=== PATIENT | female | born 1970 | race Two or more races ===

== ENCOUNTER → 2020-02-07 11:36 | Outpatient (BNVA) | payer OTHER, SELFPAY | PROVIDERS: PCP Physician Assistant; Visit Provider Internal Medicine Pulmonary Disease | DX: J42 Unspecified chronic bronchitis (principal); Z79.899 Other long term (current) drug therapy | CPT/HCPCS: 99212 ==

== ENCOUNTER → 2020-04-27 14:39 | Outpatient (BNVA) | payer OTHER, SELFPAY | PROVIDERS: PCP Physician Assistant; Visit Provider Internal Medicine Pulmonary Disease ==

== ENCOUNTER → 2020-06-25 10:32 | Outpatient (BNVA) | payer OTHER, SELFPAY | PROVIDERS: PCP Physician Assistant; Visit Provider Internal Medicine Pulmonary Disease ==

== ENCOUNTER → 2020-10-26 11:29 | Outpatient (BNVA) | payer OTHER, SELFPAY | PROVIDERS: PCP Physician Assistant; Visit Provider Internal Medicine Pulmonary Disease ==

== ENCOUNTER → 2021-05-03 13:29 | Outpatient (BNVA) | payer OTHER, SELFPAY | PROVIDERS: PCP Physician Assistant; Visit Provider Internal Medicine Pulmonary Disease | DX: J42 Unspecified chronic bronchitis (principal); J20.9 Acute bronchitis, unspecified; J01.90 Acute sinusitis, unspecified; Z79.899 Other long term (current) drug therapy | CPT/HCPCS: 99212 ==

== ENCOUNTER → 2021-08-21 10:37 | Outpatient (BNVA) | payer OTHER, SELFPAY | PROVIDERS: PCP Internal Medicine; Visit Provider Internal Medicine Pulmonary Disease | DX: J42 Unspecified chronic bronchitis (principal); J20.9 Acute bronchitis, unspecified; G47.33 Obstructive sleep apnea (adult) (pediatric); R06.00 Dyspnea, unspecified; Z99.89 Dependence on other enabling machines and devices | CPT/HCPCS: 99212 ==

== ENCOUNTER → 2021-10-04 13:37 | Outpatient (BNVA) | payer OTHER, SELFPAY | PROVIDERS: PCP Internal Medicine; Visit Provider Internal Medicine Pulmonary Disease | DX: J20.9 Acute bronchitis, unspecified (principal); J42 Unspecified chronic bronchitis; R06.00 Dyspnea, unspecified; G47.33 Obstructive sleep apnea (adult) (pediatric); Z99.89 Dependence on other enabling machines and devices | CPT/HCPCS: 99212 ==

== ENCOUNTER → 2021-11-26 13:00 | Outpatient (REF) | payer OTHER, SELFPAY ==
--- NOTE | ~2021-11-26 | XR_ITS ---
EXAMINATION: XR CHEST CLINICAL INFORMATION: Dyspnea COMPARISON: None TECHNIQUE: 2 views of the chest were obtained. FINDINGS: The lungs are well expanded. There is no focal consolidation, edema, or effusion. No pneumothorax. The cardiomediastinal silhouette is within normal limits. No acute osseous abnormality. XR/XR chest 2V IMPRESSION: Clear lungs.
--- NOTE | 2021-11-26 13:06 | CA_ITS ---
Transthoracic Echocardiogram Patient (Last, First, Middle): Rita Carlin, Gender: Female Date of : 1970 Age: 50 Procedure Date: 11/26/2021 Procedure Type: Transthoracic Echocardiogram Location: OP Height: 152.4 cm Weight: 89.36 kg BSA: 1.85 m2 Heart Rate: bpm BP: 122 / 60 mmHg Director Account Management: Referring MD: Chacho Saul MD Symptoms: R06.00 - Dyspnea, unspecified Study Quality: Fair ECG Rhythm: Sinus Conclusions: - The left ventricular systolic function is normal. The calculated ejection fraction is 62% by biplane method. - No obvious valvular pathology seen on this study. - There is no evidence of pulmonary hypertension. - There is no evidence of pericardial effusion. Findings Left Ventricle Normal left ventricular cavity size. There is mildly increased left ventricular wall thickness. The left ventricular systolic function is normal. The calculated ejection fraction is 62% by biplane method. There is no evidence of regional wall motion abnormalities. Diastolic function is normal for age. Right Ventricle Normal right ventricular cavity size and systolic function. Atria Both atria are normal in size. Aortic Valve The aortic valve was not well visualized. There is no aortic valve stenosis. There is no aortic valve regurgitation. Mitral Valve The mitral valve appears normal. There is no mitral valve regurgitation. There is no mitral valve stenosis. Pulmonic Valve The pulmonic valve was not well visualized. Tricuspid Valve There is trace tricuspid valve regurgitation. There is no evidence of pulmonary hypertension. Great Vessels The asc aorta is normal in size. Venous The inferior vena cava is normal in size and collapses greater than 50% with inspiration. Pericardium/Pleural There is no evidence of pericardial effusion. Prior Study Comparison No prior study available for comparison. Recommendations, Care & Conclusions No obvious valvular pathology seen on this study. Measurements 2D Linear Measurements IVSd: 1.34 0.6-0.9/0.6-1.0 cm LVIDd: 4.16 3.9-5.3/4.2-5.9 cm LVIDd Index: 2.25 2.4-3.2/2.2-3.1 cm/m2 LVIDs: 2.57 2.0-3.6 cm LVPWd: 1.37 0.7-1.1 cm Ao Root: 3.30 2.1-3.5 cm LA Diam: 3.70 2.7-3.8/3.0-4.0 cm LAIDs Index: 2.00 1.5-2.3 cm/m2 LV Mass: 262.34 67-162/88-224 g LV Mass Index: 141.81 43-95/49-115 g/m2 LVOT Diam: 2.10 3.0+(-)1.3 cm 2D Systolic Function EF 4C: 58.80 >55% EF 2C: 62.30 >55% EF BiP: 61.80 >55% Mitral Valve MV Pk E: 0.75 MV PK A: 0.98 MV Decel Time: 187.00 E/A: 0.80 E'Lateral: 8.59 E'Medial: 6.42 E/E' Med: 11.70 E/E' Lat: 8.80 PHT: 55.00 MVA PHT: 4.00 Decel Jasper: 4.04 Aortic Valve AoV Pk Dino: 1.39 AoV Mn Dino: 0.95 AoV VTI: 0.31 AoV Pk Grad: 8.00 Aov Mn Grad: 4.00 AUNDREA Cont.VTI: 2.57 LVOT LVOT Pk Dino: 1.16 LVOT Mn Dino: 0.69 LVOT VTI: 0.23 LVOT Pk Grad: 5.00 LVOT Mn Grad: 2.00 LVOT Diam: 2.10 LVOT Area: 3.46 Diastolic Function MV Pk E: 0.75 MV Pk A: 0.98 E/A: 0.80 E'Medial: 6.42 E/E' Med: 11.70 E' Laterial: 8.59 E/E' Lat: 8.80 Right Ventricle TAPSE (mm): 28.00 TVS' Dino: 12.00 Tricuspid Valve TR Pk Dino: 1.83 TR Pk Grad: 13.00 RA Press: 3.00 RVSP: 16.00 Great Vessels Aorta Ao Root-2D: 3.30 2.0-3.7 cm Ao Asc: 3.30 2.1-3.4 cm Pulmonary Valve PV Pk Dino: 1.00 Peak PV Grad: 4.00 Updated in Other Vendor System with Status of Final Quintin Coleman MD electronically signed on 11/27/2021 12:20:56 PM with status of Final
== END ==
LOC: HO.CARD 13:00
PROVIDERS: PCP Internal Medicine; Visit Provider Internal Medicine Pulmonary Disease
DX: R06.00 Dyspnea, unspecified (principal)
CPT/HCPCS: 71046; 93306

== ENCOUNTER → 2021-12-18 10:59 | Outpatient (BNVA) | payer OTHER, SELFPAY | PROVIDERS: PCP Internal Medicine; Visit Provider Internal Medicine Pulmonary Disease | DX: R06.00 Dyspnea, unspecified (principal); G47.33 Obstructive sleep apnea (adult) (pediatric); Z79.899 Other long term (current) drug therapy; Z99.89 Dependence on other enabling machines and devices | CPT/HCPCS: 99212 ==

== ENCOUNTER → 2022-01-28 11:13 | Outpatient (BNVA) | payer OTHER, SELFPAY | PROVIDERS: PCP Internal Medicine; Visit Provider Internal Medicine Pulmonary Disease | DX: J20.9 Acute bronchitis, unspecified (principal); J42 Unspecified chronic bronchitis; R06.00 Dyspnea, unspecified; G47.33 Obstructive sleep apnea (adult) (pediatric); Z99.89 Dependence on other enabling machines and devices | CPT/HCPCS: 99212 ==

== ENCOUNTER → 2022-02-13 10:34 | Outpatient (BNVA) | payer OTHER, SELFPAY | PROVIDERS: PCP Internal Medicine; Visit Provider Internal Medicine Pulmonary Disease | DX: J42 Unspecified chronic bronchitis (principal); G47.33 Obstructive sleep apnea (adult) (pediatric); R06.00 Dyspnea, unspecified; Z99.89 Dependence on other enabling machines and devices | CPT/HCPCS: 99212 ==

== ENCOUNTER → 2022-04-30 13:54 | Outpatient (REF) | payer OTHER, SELFPAY | LOC: HO.SL 13:54 | PROVIDERS: PCP Internal Medicine; Visit Provider Internal Medicine Pulmonary Disease | DX: G47.33 Obstructive sleep apnea (adult) (pediatric) (principal); Z99.89 Dependence on other enabling machines and devices | CPT/HCPCS: 95806 ==

== ENCOUNTER → 2022-07-04 09:15 | Outpatient (BNVA) | payer OTHER, SELFPAY | PROVIDERS: PCP Internal Medicine; Visit Provider Internal Medicine Pulmonary Disease | DX: R06.00 Dyspnea, unspecified (principal); J20.9 Acute bronchitis, unspecified; J42 Unspecified chronic bronchitis | CPT/HCPCS: 99212 ==

== ENCOUNTER → 2022-09-24 11:00 | Outpatient (BNVA) | payer OTHER, SELFPAY | PROVIDERS: PCP Internal Medicine; Visit Provider Internal Medicine Pulmonary Disease | DX: J42 Unspecified chronic bronchitis (principal); Z79.899 Other long term (current) drug therapy | CPT/HCPCS: 99212 ==

== ENCOUNTER 2023-01-21 11:04 | Outpatient (AMB) | payer MEDICARE, MEDICAID, SELFPAY ==
--- NOTE | 2023-01-21 11:05 | MHC.OFFVIS ---
Intake Vital Signs 01/21/23 11:06 Height 5 ft Weight 213 lb 13.574 oz BMI 41.8 BP 108/67 Blood Pressure Location Lt brachial Position Sitting Pulse 80 Pulse Source Doppler Pulse Oximetry (%) 98 Oxygen Delivery Method Room Air Intake Visit Reasons: asthma Loss Prevention Coordinator Required: Yes Loss Prevention Coordinator Name: Seema Aden Franks Allergies penicillin V Allergy (Severe, Verified 01/21/23 11:10) Dizziness/Closed Trachea Sulfa (Sulfonamide Antibiotics) Allergy (Severe, Verified 01/21/23 11:10) Dizziness/Closed Trachea HPI asthma HPI Details 52-year-old lady, lifetime nonsmoker, with underlying super morbid obesity followed for CONSTANTINO, dyspnea on exertion, and chronic bronchitis. ?She continues to use Breo, Spiriva, Brovana, and albuterol MDI with suboptimal control of her symptoms.? She has completed her 2D echocardiogram and was normal.? She continues to complain of dyspnea with exertion and fatigue.? [facility] Social History Patient Tobacco Use Status: Never used Tobacco Review of Systems Const Denies daytime sleepiness, Denies excessive sweating, Denies fatigue, Denies fever(s), Denies lethargy, Denies malaise, Denies night sweats, Denies snoring and Denies weight loss Eyes Denies blurry vision and Denies itchy eyes ENT Denies nasal congestion, Denies post nasal drip, Denies sinus pain, Denies sinus pressure and Denies other ( Thrush) Card Denies chest pain, Denies pedal edema, Denies dyspnea, Reports dyspnea on exertion, Denies orthopnea and Denies paroxysmal nocturnal dyspnea Resp Denies cough, Denies hemoptysis, Denies excessive phlegm production, Denies dyspnea, Reports dyspnea on exertion, Denies snoring, Denies wheezing and Reports other (Chest tightness) GI Denies abdominal pain and Denies heartburn Musc Denies myalgias, Denies arthralgias and Denies joint swelling Skin/Breast Denies rash Neuro Denies memory loss and Denies seizure-like activity Psych Denies abnormal sleep pattern, Denies anxiety and Denies memory loss Endo Denies excessive sweating, Denies fatigue and Denies heat intolerance Hal/Lymph Denies easy bruising Aller/Immun Denies itchy eyes, Denies seasonal rhinorrhea and Denies wheezing Physical Exam Vital Signs: Last Vital Signs Pulse 80 01/21/23 11:06 BP 108/67 01/21/23 11:06 Pulse Ox 98 01/21/23 11:06 Oxygen Delivery Method Room Air 01/21/23 11:06 BMI result Body Mass Index 41.8 Const General: no acute distress and alert Nutritional Appearance: obese Orientation/consciousness: Other orientation findings ( oriented) HEENT Head: Yes atraumatic Eyes General: appearance normal, both eyes and all related structures Sclerae: sclerae normal EOM: EOMs intact bilaterally Neck Neck: Yes supple Lymphatic: no lymphadenopathy noted Resp Effort & Inspection: normal respiratory effort and no use of accessory muscles Auscultation: clear to auscultation bilaterally Cardio Rate: regular rate Rhythm: regular rhythm Heart sounds: no gallops, no murmurs and no rubs Skin General skin exam: other ( warm) Extrem General: No clubbing, No cyanosis and No edema Assessment & Plan Assessment & Plan (1) Dyspnea on exertion: Code(s): R06.00 - Dyspnea, unspecified Plan: Pulmonary component controlled on essentially maximum therapy with Brovana, duo nebs, Breo, albuterol MDI. Patient has been advised to discuss weight management options with weight management program. (2) CONSTANTINO on CPAP: Code(s): G47.33 - Obstructive sleep apnea (adult) (pediatric); Z99.89 - Dependence on other enabling machines and devices Plan: Reasonably well controlled on current therapy. Continue current CPAP therapy. Coding Level of Care Code Est Pt Level 4 (19273) Diagnoses Dyspnea on exertion R06.00 CONSTANTINO on CPAP G47.33; Z99.89
[2023-01-21 11:06] VITALS: BP 108/67; PULSE 80; O2SAT 98; BMI 41.8
== END 2023-01-21 11:26 | disposition home or self-care (01) ==
PROVIDERS: PCP Internal Medicine; Visit Provider Internal Medicine Pulmonary Disease
DX: R06.00 Dyspnea, unspecified (principal); G47.33 Obstructive sleep apnea (adult) (pediatric); Z99.89 Dependence on other enabling machines and devices
CPT/HCPCS: 99214

== ENCOUNTER → 2023-01-21 11:04 | Outpatient (BNVA) | payer MEDICARE, MEDICAID, SELFPAY | PROVIDERS: PCP Internal Medicine; Visit Provider Internal Medicine Pulmonary Disease | DX: R06.00 Dyspnea, unspecified (principal); G47.33 Obstructive sleep apnea (adult) (pediatric); Z99.89 Dependence on other enabling machines and devices | CPT/HCPCS: 99212 ==

== ENCOUNTER 2023-06-18 10:55 | Outpatient (AMB) | payer MEDICARE, MEDICAID, SELFPAY ==
[2023-06-18 11:14] VITALS: BP 98/62; PULSE 74; O2SAT 98; BMI 41.5
--- NOTE | 2023-06-18 11:14 | A.OFFVIS_ITS ---
Intake Vital Signs 06/18/23 11:14 Height 5 ft Weight 212 lb 11.937 oz BMI 41.5 BP 98/62 Blood Pressure Location Lt brachial Position Sitting Pulse 74 Pulse Source Doppler Pulse Oximetry (%) 98 Oxygen Delivery Method Room Air Intake Visit Reasons: Asthma Retail Customer Service Specialist Required: Yes Retail Customer Service Specialist Name: Seema Aden Franks Allergies penicillin V Allergy (Severe, Verified 06/18/23 11:15) Dizziness/Closed Trachea Sulfa (Sulfonamide Antibiotics) Allergy (Severe, Verified 06/18/23 11:15) Dizziness/Closed Trachea HPI Asthma HPI Details 52-year-old lady, lifetime nonsmoker, wi th underlying super morbid obesity followed for CONSTANTINO, dyspnea on exertion, and chronic bronchitis. ?She continues to use Breo, Spiriva, Brovana, and albuterol MDI with suboptimal control of her symptoms.? She has completed her 2D echocardiogram and was normal.? She continues to complain of dyspnea with exertion and fatigue.? Her CPAP mask has been malfunctioning and she has had difficulties using her CPAP machine. She is also complain of bronchitic symptoms. [facility] Social History Patient Tobacco Use Status: Never used Tobacco Review of Systems Const Reports daytime sleepiness, Denies excessive sweating, Reports fatigue, Denies fever(s), Denies lethargy, Denies malaise, Denies night sweats, Denies snoring and Denies weight loss Eyes Denies blurry vision and Denies itchy eyes ENT Denies nasal congestion, Denies post nasal drip, Denies sinus pain, Denies sinus pressure and Denies other ( Thrush) Card Denies chest pain, Denies pedal edema, Denies dyspnea, Denies orthopnea and Denies paroxysmal nocturnal dyspnea Resp Reports cough, Denies hemoptysis, Reports excessive phlegm production, Denies dyspnea, Denies snoring and Denies wheezing GI Denies abdominal pain and Denies heartburn Musc Denies myalgias, Denies arthralgias and Denies joint swelling Skin/Breast Denies rash Neuro Denies memory loss and Denies seizure-like activity Psych Denies abnormal sleep pattern, Denies anxiety and Denies memory loss Endo Denies excessive sweating, Reports fatigue and Denies heat intolerance Hal/Lymph Denies easy bruising Aller/Immun Denies itchy eyes, Denies seasonal rhinorrhea and Denies wheezing Physical Exam Vital Signs: Last Vital Signs Pulse 74 06/18/23 11:14 BP 98/62 06/18/23 11:14 Pulse Ox 98 06/18/23 11:14 Oxygen Delivery Method Room Air 06/18/23 11:14 BMI result Body Mass Index 41.5 Const General: no acute distress and alert Nutritional Appearance: obese Orientation/consciousness: Other orientation findings ( oriented) HEENT Head: Yes atraumatic Eyes General: appearance normal, both eyes and all related structures Sclerae: sclerae normal EOM: EOMs intact bilaterally Neck Neck: Yes supple Lymphatic: no lymphadenopathy noted Resp Effort & Inspection: normal respiratory effort and no use of accessory muscles Auscultation: clear to auscultation bilaterally Cardio Rate: regular rate Rhythm: regular rhythm Heart sounds: no gallops, no murmurs and no rubs Skin General skin exam: other ( warm) Extrem General: No clubbing, No cyanosis and No edema Assessment & Plan Assessment & Plan (1) Dyspnea on exertion: Code(s): R06.00 - Dyspnea, unspecified Plan: Continues on Symbicort and Spiriva, but still derive symptomatic benefit from using duo nebs and albuterol MDI. Will add theophylline. Bronchitic symptoms, will treat with a course of azithromycin and Mucomyst. (2) CONSTANTINO on CPAP: Code(s): G47.33 - Obstructive sleep apnea (adult) (pediatric); Z99.89 - Dependence on other enabling machines and devices Plan: Patient had difficulty obtaining fullface mask from her [employer] company. Fullface mask provided. Continue CPAP therapy. Medications: New theophylline ER 400 mg PO DAILY 30 tabs 6RF 30 days guaifenesin ER 1,200 mg (2 x 600 mg) PO BID 40 tabs 0RF 10 days Refilled azithromycin For 250 mg dose pack: take 500 mg today (day 1), then 250 mg for 4 days (days 2-5) PO 6 tabs 0RF Discontinued prednisone Discontinued Reason: Doctor's Order 40 mg (2 x 20 mg) PO DAILY 10 tabs 0RF doxycycline monohydrate Discontinued Reason: Doctor's Order 100 mg PO BID 10 days 20 caps 0RF Coding Level of Care Code Est Pt Level 4 (91524) Diagnoses Dyspnea on exertion R06.00 CONSTANTINO on CPAP G47.33; Z99.89
== END 2023-06-18 11:42 | disposition home or self-care (01) ==
PROVIDERS: PCP Internal Medicine; Visit Provider Internal Medicine Pulmonary Disease
DX: R06.00 Dyspnea, unspecified (principal); G47.33 Obstructive sleep apnea (adult) (pediatric); Z99.89 Dependence on other enabling machines and devices
CPT/HCPCS: 99214

== ENCOUNTER → 2023-06-18 10:55 | Outpatient (BNVA) | payer MEDICARE, MEDICAID, SELFPAY | PROVIDERS: PCP Internal Medicine; Visit Provider Internal Medicine Pulmonary Disease | DX: J42 Unspecified chronic bronchitis (principal); G47.33 Obstructive sleep apnea (adult) (pediatric); E66.01 Morbid (severe) obesity due to excess calories; Z99.89 Dependence on other enabling machines and devices | CPT/HCPCS: 99212 ==

== ENCOUNTER 2023-07-17 10:46 | Outpatient (AMB) | payer MEDICARE, MEDICAID, SELFPAY ==
[2023-07-17 10:50] VITALS: BP 118/62; PULSE 75; O2SAT 98; BMI 41.3
--- NOTE | 2023-07-17 10:50 | A.OFFVIS_ITS ---
Intake Vital Signs 07/17/23 10:50 Height 5 ft Weight 211 lb 10.3 oz BMI 41.3 BP 118/62 Blood Pressure Location Lt brachial Position Sitting Pulse 75 Pulse Source Doppler Pulse Oximetry (%) 98 Oxygen Delivery Method Room Air Intake Visit Reasons: Asthma Dado Operator Required: Yes Dado Operator Name: Seema edmond Franks Allergies penicillin V Allergy (Severe, Verified 06/18/23 11:15) Dizziness/Closed Trachea Sulfa (Sulfonamide Antibiotics) Allergy (Severe, Verified 06/18/23 11:15) Dizziness/Closed Trachea HPI Asthma HPI Details 52-year-old lady, lifetime nonsmoker, wi th underlying super morbid obesity followed for CONSTANTINO, dyspnea on exertion, and chronic bronchitis. ?She continues to use Breo, Spiriva, Brovana, and albuterol MDI with suboptimal control of her symptoms.? She has completed her 2D echocardiogram and was normal.? She continues to complain of dyspnea with exertion and fatigue.? She has been using her CPAP with reasonable control of her CONSTANTINO symptoms. [facility] Social History Patient Tobacco Use Status: Never used Tobacco Review of Systems Const Denies daytime sleepiness, Denies excessive sweating, Denies fatigue, Denies fever(s), Denies lethargy, Denies malaise, Denies night sweats, Denies snoring and Denies weight loss Eyes Denies blurry vision and Denies itchy eyes ENT Denies nasal congestion, Denies post nasal drip, Denies sinus pain, Denies sinus pressure and Denies other ( Thrush) Card Denies chest pain, Denies pedal edema, Denies dyspnea, Reports dyspnea on exertion, Denies orthopnea and Denies paroxysmal nocturnal dyspnea Resp Denies cough, Denies hemoptysis, Denies excessive phlegm production, Denies dyspnea, Reports dyspnea on exertion, Denies snoring and Denies wheezing GI Denies abdominal pain and Denies heartburn Musc Denies myalgias, Denies arthralgias and Denies joint swelling Skin/Breast Denies rash Neuro Denies memory loss and Denies seizure-like activity Psych Denies abnormal sleep pattern, Denies anxiety and Denies memory loss Endo Denies excessive sweating, Denies fatigue and Denies heat intolerance Hal/Lymph Denies easy bruising Aller/Immun Denies itchy eyes, Denies seasonal rhinorrhea and Denies wheezing Physical Exam Vital Signs: Last Vital Signs Pulse 75 07/17/23 10:50 BP 118/62 07/17/23 10:50 Pulse Ox 98 07/17/23 10:50 Oxygen Delivery Method Room Air 07/17/23 10:50 BMI result Body Mass Index 41.3 Const General: no acute distress and alert Nutritional Appearance: obese Orientation/consciousness: Other orientation findings ( oriented) HEENT Head: Yes atraumatic Eyes General: appearance normal, both eyes and all related structures Sclerae: sclerae normal EOM: EOMs intact bilaterally Neck Neck: Yes supple Lymphatic: no lymphadenopathy noted Resp Effort & Inspection: normal respiratory effort and no use of accessory muscles Auscultation: clear to auscultation bilaterally Cardio Rate: regular rate Rhythm: regular rhythm Heart sounds: no gallops, no murmurs and no rubs Skin General skin exam: other ( warm) Extrem General: No clubbing, No cyanosis and No edema Assessment & Plan Assessment & Plan (1) CONSTANTINO on CPAP: Code(s): G47.33 - Obstructive sleep apnea (adult) (pediatric); Z99.89 - Dependence on other enabling machines and devices Plan: Well controlled on current CPAP therapy. Continue CPAP therapy. (2) Dyspnea on exertion: Code(s): R06.00 - Dyspnea, unspecified Plan: Pulmonary component controlled on current regimen Breo, duo nebs, Spiriva, theophylline 400, and albuterol MDI. Continue current regimen. Patient does have significant metabolic/obesity component, weight management program information provided. Coding Level of Care Code Est Pt Level 4 (60398) Diagnoses CONSTANTINO on CPAP G47.33; Z99.89 Dyspnea on exertion R06.00
== END 2023-07-17 11:15 | disposition home or self-care (01) ==
PROVIDERS: PCP Internal Medicine; Visit Provider Internal Medicine Pulmonary Disease
DX: G47.33 Obstructive sleep apnea (adult) (pediatric) (principal); Z99.89 Dependence on other enabling machines and devices; R06.00 Dyspnea, unspecified
CPT/HCPCS: 99214

== ENCOUNTER → 2023-07-17 10:46 | Outpatient (BNVA) | payer MEDICARE, MEDICAID, SELFPAY | PROVIDERS: PCP Internal Medicine; Visit Provider Internal Medicine Pulmonary Disease | DX: G47.33 Obstructive sleep apnea (adult) (pediatric) (principal); R06.00 Dyspnea, unspecified; Z99.89 Dependence on other enabling machines and devices | CPT/HCPCS: 99212 ==

== ENCOUNTER 2023-10-26 14:25 | Outpatient (AMB) | payer MEDICARE, MEDICAID, SELFPAY ==
[2023-10-26 14:27] VITALS: BP 130/78; PULSE 102; O2SAT 96; BMI 41.1
--- NOTE | 2023-10-26 14:27 | A.OFFVIS_ITS ---
Vital Signs 10/26/23 14:27 Height 5 ft Weight 210 lb 8.663 oz BMI 41.1 BP 130/78 Blood Pressure Location Rt brachial Position Sitting Pulse 102 H Pulse Source Doppler Pulse Oximetry (%) 96 Oxygen Delivery Method Room Air Intake Visit Reasons: Asthma/sick Welder Gas Tungsten Arc Required: Yes Welder Gas Tungsten Arc Name: Seema Aden Franks Allergies penicillin V Allergy (Severe, Verified 10/26/23 14:36) Dizziness/Closed Trachea Sulfa (Sulfonamide Antibiotics) Allergy (Severe, Verified 10/26/23 14:36) Dizziness/Closed Trachea HPI HPI Asthma/sick: Details: 52-year-old lady, lifetime nonsmoker, with underlying super morbid obesity followed for CONSTANTINO, dyspnea on exertion, and chronic bronchitis. ?She continues to use Breo, Spiriva, Brovana, and albuterol MDI with suboptimal control of her symptoms.? She has completed her 2D echocardiogram and was normal.? She c ontinues to complain of dyspnea with exertion and fatigue.? She has been using her CPAP with reasonable control of her CONSTANTINO symptoms. Patient had recent endoscopy that showed severe gastritis in she is planned for surgical intervention. However, after endoscopy she has been having significant amount of acid reflux despite using PPI and H2 eulogio that is worsening her underlying cough. [facility] Social History Patient Tobacco Use Status: Never used Tobacco Review of Systems Const Denies daytime sleepiness, Denies excessive sweating, Denies fatigue, Denies fever(s), Denies lethargy, Denies malaise, Denies night sweats, Denies snoring and Denies weight loss Eyes Denies blurry vision and Denies itchy eyes ENT Denies nasal congestion, Denies post nasal drip, Denies sinus pain, Denies sinus pressure and Denies other ( Thrush) Card Denies chest pain, Denies pedal edema, Denies dyspnea, Reports dyspnea on exertion, Denies orthopnea and Denies paroxysmal nocturnal dyspnea Resp Reports cough, Denies hemoptysis, Denies excessive phlegm production, Denies dyspnea, Reports dyspnea on exertion, Denies snoring and Denies wheezing GI Denies abdominal pain and Reports heartburn Musc Denies myalgias, Denies arthralgias and Denies joint swelling Skin/Breast Denies rash Neuro Denies memory loss and Denies seizure-like activity Psych Denies abnormal sleep pattern, Denies anxiety and Denies memory loss Endo Denies excessive sweating, Denies fatigue and Denies heat intolerance Hal/Lymph Denies easy bruising Aller/Immun Denies itchy eyes, Denies seasonal rhinorrhea and Denies wheezing Physical Exam Vital Signs: Last Vital Signs Pulse 102 H 10/26/23 14:27 BP 130/78 10/26/23 14:27 Pulse Ox 96 10/26/23 14:27 Oxygen Delivery Method Room Air 10/26/23 14:27 BMI result Body Mass Index 41.1 Const General: no acute distress and alert Nutritional Appearance: obese Orientation/consciousness: Other orientation findings ( oriented) HEENT Head: Yes atraumatic Eyes General: appearance normal, both eyes and all related structures Sclerae: sclerae normal EOM: EOMs intact bilaterally Neck Neck: Yes supple Lymphatic: no lymphadenopathy noted Resp Effort & Inspection: normal respiratory effort and no use of accessory muscles Auscultation: clear to auscultation bilaterally Cardio Rate: regular rate Rhythm: regular rhythm Heart sounds: no gallops, no murmurs and no rubs Skin General skin exam: other ( warm) Extrem General: No clubbing, No cyanosis and No edema Assessment & Plan Assessment & Plan (1) CONSTANTINO on CPAP: Code(s): G47.33 - Obstructive sleep apnea (adult) (pediatric); Z99.89 - Dependence on other enabling machines and devices Category: Medical (2) GERD (gastroesophageal reflux disease): Code(s): K21.9 - Gastro-esophageal reflux disease without esophagitis Category: Medical (3) Cough: Code(s): R05.9 - Cough, unspecified Category: Medical (4) Dyspnea on exertion: Code(s): R06.00 - Dyspnea, unspecified Category: Medical Plan Now with significantly worsening cough after recent endoscopy that showed severe gastritis. Will add Carafate to underlying regimen of H2 eulogio and PPI. Will also add codeine syrup for symptomatic relief of cough. Patient does have significant obesity that has effect on her dyspnea on exert ion. Her underlying reactive airway disease component is well controlled on Breo, Brovana, Spiriva, theophylline, and duo nebs. Will continue current regimen. Will check chest x-ray. Orders: Orders XR chest 2V Today J20.9 - Acute bronchitis, unspecified, J42 - Unspecified chronic bronchitis Medications: New sucralfate (Carafate) 1 g PO TID 90 tabs 3RF 30 days codeine-guaifenesin 10-100 mg/5 mL 10 mL PO Q4-6H PRN 473 mL 0RF cough J20.9 - Acute bronchitis, unspecified, J42 - Unspecified chronic bronchitis Coding Level of Care Code Est Pt Level 4 (32278) Complex EM visit Add On G2211 Diagnoses CONSTANTINO on CPAP G47.33; Z99.89 GERD (gastroesophageal reflux disease) K21.9 Cough R05.9 Dyspnea on exertion R06.00
== END 2023-10-26 15:04 | disposition home or self-care (01) ==
PROVIDERS: PCP Internal Medicine; Visit Provider Internal Medicine Pulmonary Disease
DX: G47.33 Obstructive sleep apnea (adult) (pediatric) (principal); Z99.89 Dependence on other enabling machines and devices; K21.9 Gastro-esophageal reflux disease without esophagitis; R05.9 Cough, unspecified; R06.00 Dyspnea, unspecified
CPT/HCPCS: 99214; G2211

== ENCOUNTER 2023-10-26 14:25 | Outpatient (REF) | payer MEDICARE, MEDICAID, SELFPAY ==
--- NOTE | ~2023-10-26 | XR_ITS ---
EXAMINATION: XR CHEST CLINICAL INFORMATION: Acute bronchitis COMPARISON: None available. TECHNIQUE: 2 views of the chest were obtained. FINDINGS: Cardiac silhouette is mildly enlarged. The lungs are well aerated. There is no lobar consolidation. No pleural effusion or pneumothorax. Minimal degenerative changes of the spine. XR/XR chest 2V IMPRESSION: No acute pulmonary pathology.
== END 2023-10-26 14:26 | disposition home or self-care (01) ==
LOC: HO.XRAY 14:25
PROVIDERS: PCP Internal Medicine; Visit Provider Internal Medicine Pulmonary Disease
DX: J20.9 Acute bronchitis, unspecified (principal); G47.33 Obstructive sleep apnea (adult) (pediatric); R06.00 Dyspnea, unspecified; R05.9 Cough, unspecified; J21.9 Acute bronchiolitis, unspecified
CPT/HCPCS: 71046; 99212

== ENCOUNTER 2023-11-20 11:13 | Outpatient (AMB) | payer MEDICARE, MEDICAID, SELFPAY ==
[2023-11-20 11:17] VITALS: BP 120/67; PULSE 84; O2SAT 96; BMI 41.5
--- NOTE | 2023-11-20 11:17 | MHC.OFFVIS ---
Vital Signs 11/20/23 11:17 Height 5 ft Weight 212 lb 11.937 oz BMI 41.5 BP 120/67 Blood Pressure Location Rt brachial Position Sitting Pulse 84 Pulse Source Doppler Pulse Oximetry (%) 96 Oxygen Delivery Method Room Air Intake Visit Reasons: Asthma Explosives Truck Driver Required: Yes Explosives Truck Driver Name: Seema Aden Franks Allergies penicillin V Allergy (Severe, Verified 10/26/23 14:36) Dizziness/Closed Trachea Sulfa (Sulfonamide Antibiotics) Allergy (Severe, Verified 10/26/23 14:36) Dizziness/Closed Trachea HPI HPI Asthma: Details: 52-year-old lady, lifetime nonsmoker, with underlying super morbid obesity followed for CONSTANTINO, dyspnea on exertion, and chronic bronchitis. ?She continues to use Breo, Spiriva, Brovana, and albuterol MDI with suboptimal control of her symptoms.? She has completed her 2D echocardiogram and was normal.? She continues to complain of dyspnea with exertion and fatigue.? She has been using her CPAP with reasonable control of her CONSTANTINO symptoms. After the last office visit patient was started Carafate with significant improvement in her cough/GERD. She does complain of residual cough productive of yellowish sputum. She denies recent acute exacerbations. [facility] Medical History (Updated 11/20/23 @ 10:59 by Naty Garcia PA-C) Hypertension Hypertriglyceridemia Poorly controlled type 2 diabetes mellitus Dyspnea on exertion Chronic bronchitis CONSTANTINO on CPAP GERD (gastroesophageal reflux disease) History of pancreatitis Morbid obesity Social History Patient Tobacco Use Status: Never used Tobacco Review of Systems Const Denies daytime sleepiness, Denies excessive sweating, Denies fatigue, Denies fever(s), Denies lethargy, Denies malaise, Denies night sweats, Denies snoring and Denies weight loss Eyes Denies blurry vision and Denies itchy eyes ENT Denies nasal congestion, Denies post nasal drip, Denies sinus pain, Denies sinus pressure and Denies other ( Thrush) Card Denies chest pain, Denies pedal edema, Denies dyspnea, Denies orthopnea and Denies paroxysmal nocturnal dyspnea Resp Reports cough, Denies hemoptysis, Reports excessive phlegm production, Denies dyspnea, Denies snoring and Denies wheezing GI Denies abdominal pain and Denies heartburn Musc Denies myalgias, Denies arthralgias and Denies joint swelling Skin/Breast Denies rash Neuro Denies memory loss and Denies seizure-like activity Psych Denies abnormal sleep pattern, Denies anxiety and Denies memory loss Endo Denies excessive sweating, Denies fatigue and Denies heat intolerance Hal/Lymph Denies easy bruising Aller/Immun Denies itchy eyes, Denies seasonal rhinorrhea and Denies wheezing Physical Exam Vital Signs: Last Vital Signs Pulse 84 11/20/23 11:17 BP 120/67 11/20/23 11:17 Pulse Ox 96 11/20/23 11:17 Oxygen Delivery Method Room Air 11/20/23 11:17 BMI result Body Mass Index 41.5 Const General: no acute distress and alert Nutritional Appearance: obese Orientation/consciousness: Other orientation findings ( oriented) HEENT Head: Yes atraumatic Eyes General: appearance normal, both eyes and all related structures Sclerae: sclerae normal EOM: EOMs intact bilaterally Neck Neck: Yes supple Lymphatic: no lymphadenopathy noted Resp Effort & Inspection: normal respiratory effort and no use of accessory muscles Auscultation: clear to auscultation bilaterally Cardio Rate: regular rate Rhythm: regular rhythm Heart sounds: no gallops, no murmurs and no rubs Skin General skin exam: other ( warm) Extrem General: No clubbing, No cyanosis and No edema Assessment & Plan Assessment & Plan (1) CONSTANTINO on CPAP: Code(s): G47.33 - Obstructive sleep apnea (adult) (pediatric); Z99.89 - Dependence on other enabling machines and devices Category: Medical Plan: Reasonable control on current CPAP therapy. Continue CPAP therapy. (2) Chronic bronchitis: Code(s): J42 - Unspecified chronic bronchitis Category: Medical Plan: Still with mild bronchitic symptoms, will treat with a course of azithromycin. Continue Brovana, Breo, and duo nebs. (3) Cough: Code(s): R05.9 - Cough, unspecified Category: Medical Plan: GERD component significantly improved on Carafate. Continue current regimen. Medications: Refilled azithromycin For 250 mg dose pack: take 500 mg today (day 1), then 250 mg for 4 days (days 2-5) PO 6 tabs 0RF ipratropium-albuterol 0.5 mg-3 mg(2.5 mg base)/3 mL 3 mL inhalation Q4-6H 30 days PRN 270 mL 6RF wheezing Coding Level of Care Code Est Pt Level 4 (85069) Diagnoses CONSTANTINO on CPAP G47.33; Z99.89 Chronic bronchitis J42 Cough R05.9
== END 2023-11-20 11:44 | disposition home or self-care (01) ==
PROVIDERS: PCP Internal Medicine; Visit Provider Internal Medicine Pulmonary Disease
DX: G47.33 Obstructive sleep apnea (adult) (pediatric) (principal); Z99.89 Dependence on other enabling machines and devices; J42 Unspecified chronic bronchitis; R05.9 Cough, unspecified
CPT/HCPCS: 99214

== ENCOUNTER → 2023-11-20 11:13 | Outpatient (BNVA) | payer MEDICARE, MEDICAID, SELFPAY | PROVIDERS: PCP Internal Medicine; Visit Provider Internal Medicine Pulmonary Disease | DX: G47.33 Obstructive sleep apnea (adult) (pediatric) (principal); J42 Unspecified chronic bronchitis; R05.9 Cough, unspecified; Z99.89 Dependence on other enabling machines and devices | CPT/HCPCS: 99212 ==

== ENCOUNTER 2024-02-05 11:46 | Outpatient (AMB) | payer MEDICARE, MEDICAID, SELFPAY ==
[2024-02-05 11:50] VITALS: BP 104/62; PULSE 84; O2SAT 98; BMI 41.2
--- NOTE | 2024-02-05 11:50 | A.OFFVIS_ITS ---
Vital Signs 02/05/24 11:50 Height 5 ft Weight 211 lb BMI 41.2 BP 104/62 Blood Pressure Location Rt brachial Position Sitting Pulse 84 Pulse Source Doppler Pulse Oximetry (%) 98 Oxygen Delivery Method Room Air Intake Visit Reasons: Asthma Allergies clindamycin Allergy (Severe, Verified 02/05/24 11:57) Gastrointestinal Upset penicillin V Allergy (Severe, Verified 10/26/23 14:36) Dizziness/Closed Trachea Sulfa (Sulfonamide Antibiotics) Allergy (Severe, Verified 10/26/23 14:36) Dizziness/Closed Trachea HPI HPI Asthma: Details: 52-year-old lady, lifetime nonsmoker, with underlying super morbid obesity followed for CONSTANTINO, dyspnea on exertion, and chronic bronchitis. ?She continues to use Breo, Spiriva, Brovana, and albuterol MDI with suboptimal control of her symptoms.? She has completed her 2D echocardiogram and was normal.? She continues to complain of dyspnea with exertion and fatigue.? She has been using her CPAP with reasonable control of her CONSTANTINO symptoms. She continues on Carafate for her GERD. Over the last 3 days patient started to develop myalgias, cough productive of small amount of yellowish sputum, and dyspnea. Though, she denies fevers. [facility] Medical History (Updated 11/20/23 @ 10:59 by Naty Garcia PA-C) Hypertension Hypertriglyceridemia Poorly controlled type 2 diabetes mellitus Dyspnea on exertion Chronic bronchitis CONSTANTINO on CPAP GERD (gastroesophageal reflux disease) History of pancreatitis Morbid obesity Social History Patient Tobacco Use Status: Never used Tobacco Review of Systems Const Denies daytime sleepiness, Denies excessive sweating, Denies fatigue, Denies fever(s), Denies lethargy, Denies malaise, Denies night sweats, Denies snoring and Denies weight loss Eyes Denies blurry vision and Denies itchy eyes ENT Denies nasal congestion, Denies post nasal drip, Denies sinus pain, Denies sinus pressure and Denies other ( Thrush) Card Denies chest pain, Denies pedal edema, Denies dyspnea, Reports dyspnea on exertion, Denies orthopnea and Denies paroxysmal nocturnal dyspnea Resp Reports cough, Denies hemoptysis, Reports excessive phlegm production, Denies dyspnea, Reports dyspnea on exertion, Denies snoring and Denies wheezing GI Denies abdominal pain and Denies heartburn Musc Denies myalgias, Denies arthralgias and Denies joint swelling Skin/Breast Denies rash Neuro Denies memory loss and Denies seizure-like activity Psych Denies abnormal sleep pattern, Denies anxiety and Denies memory loss Endo Denies excessive sweating, Denies fatigue and Denies heat intolerance Hal/Lymph Denies easy bruising Aller/Immun Denies itchy eyes, Denies seasonal rhinorrhea and Denies wheezing Physical Exam Vital Signs: Last Vital Signs Pulse 84 02/05/24 11:50 BP 104/62 02/05/24 11:50 Pulse Ox 98 02/05/24 11:50 Oxygen Delivery Method Room Air 02/05/24 11:50 BMI result Body Mass Index 41.2 Const General: no acute distress and alert Nutritional Appearance: obese Orientation/consciousness: Other orientation findings ( oriented) HEENT Head: Yes atraumatic Eyes General: appearance normal, both eyes and all related structures Sclerae: sclerae normal EOM: EOMs intact bilaterally Neck Neck: Yes supple Lymphatic: no lymphadenopathy noted Resp Effort & Inspection: normal respiratory effort and no use of accessory muscles Auscultation: clear to auscultation bilaterally Cardio Rate: regular rate Rhythm: regular rhythm Heart sounds: no gallops, no murmurs and no rubs Skin General skin exam: other ( warm) Extrem General: No clubbing, No cyanosis and No edema Assessment & Plan Assessment & Plan (1) CONSTANTINO on CPAP: Code(s): G47.33 - Obstructive sleep apnea (adult) (pediatric); Z99.89 - Dependence on other enabling machines and devices Category: Medical Plan: Continue CPAP therapy. (2) Acute exacerbation of chronic bronchitis: Code(s): J20.9 - Acute bronchitis, unspecified; J42 - Unspecified chronic bronchitis Category: Medical Plan: Baseline controlled on Symbicort, Spiriva, theophylline, Brovana, and duo nebs. Continue current regimen. Now with an acute exacerbation. Will treat with a course of Levaquin. Medications: New levofloxacin 500 mg PO DAILY 7 tabs 0RF Coding Level of Care Code Est Pt Level 4 (17682) Complex EM visit Add On G2211 Diagnoses CONSTANTINO on CPAP G47.33; Z99.89 Acute exacerbation of chronic bronchitis J20.9; J42
== END 2024-02-05 12:06 | disposition home or self-care (01) ==
LOC: HO.HPS 11:47
PROVIDERS: PCP Internal Medicine; Visit Provider Internal Medicine Pulmonary Disease
DX: G47.33 Obstructive sleep apnea (adult) (pediatric) (principal); Z99.89 Dependence on other enabling machines and devices; J20.9 Acute bronchitis, unspecified; J42 Unspecified chronic bronchitis
CPT/HCPCS: 99214; G2211

== ENCOUNTER → 2024-02-05 11:46 | Outpatient (BNVA) | payer MEDICARE, MEDICAID, SELFPAY | PROVIDERS: PCP Internal Medicine; Visit Provider Internal Medicine Pulmonary Disease | DX: J20.9 Acute bronchitis, unspecified (principal); J42 Unspecified chronic bronchitis; G47.33 Obstructive sleep apnea (adult) (pediatric); E66.01 Morbid (severe) obesity due to excess calories; Z68.41 Body mass index [BMI] 40.0-44.9, adult; Z99.89 Dependence on other enabling machines and devices | CPT/HCPCS: 99212 ==

== ENCOUNTER 2024-06-28 11:13 | Outpatient (AMB) | payer MEDICARE, MEDICAID, SELFPAY ==
[2024-06-28 11:17] VITALS: BP 104/54; PULSE 81; O2SAT 98; BMI 41.3
--- NOTE | 2024-06-28 11:17 | MHC.OFFVIS ---
Vital Signs 06/28/24 11:17 Height 5 ft Weight 211 lb 10.3 oz BMI 41.3 BP 104/54 L Blood Pressure Location Rt brachial Position Sitting Pulse 81 Pulse Source Doppler Pulse Oximetry (%) 98 Oxygen Delivery Method Room Air Intake Visit Reasons: Asthma Counterintelligence Analyst Required: Yes Counterintelligence Analyst Name: Seema Aden Franks Allergies clindamycin Allergy (Severe, Verified 06/28/24 11:19) Gastrointestinal Upset penicillin V Allergy (Severe, Verified 06/28/24 11:19) Dizziness/Closed Trachea Sulfa (Sulfonamide Antibiotics) Allergy (Severe, Verified 06/28/24 11:19) Dizziness/Closed Trachea HPI HPI Asthma: Details: 53-year-old lady, lifetime nonsmoker, with underlying super morbid obesity followed for CONSTANTINO, dyspnea on exertion, and chronic bronchitis. ?She continues to use Breo, Spiriva, Brovana, and albuterol MDI with suboptimal control of her symptoms.? She has completed her 2D echocardiogram and was normal.? She continues to complain of dyspnea with exertion and fatigue.? She has been using her CPAP with reasonable control of her CONSTANTINO symptoms. She continues on Carafate for her GERD. She is complaining of oral thrush. [facility] Medical History (Updated 06/28/24 @ 11:46 by Chacho Saul MD) Hypertension Hypertriglyceridemia Poorly controlled type 2 diabetes mellitus Dyspnea on exertion Chronic bronchitis CONSTANTINO on CPAP GERD (gastroesophageal reflux disease) History of pancreatitis Morbid obesity Social History Patient Tobacco Use Status: Never used Tobacco Review of Systems Const Denies daytime sleepiness, Denies excessive sweating, Denies fatigue, Denies fever(s), Denies lethargy, Denies malaise, Denies night sweats, Denies snoring and Denies weight loss Eyes Denies blurry vision and Denies itchy eyes ENT Denies nasal congestion, Denies post nasal drip, Denies sinus pain, Denies sinus pressure and Reports other ( Thrush) Card Denies chest pain, Denies pedal edema, Denies dyspnea, Reports dyspnea on exertion, Denies orthopnea and Denies paroxysmal nocturnal dyspnea Resp Denies cough, Denies hemoptysis, Denies excessive phlegm production, Denies dyspnea, Reports dyspnea on exertion, Denies snoring and Denies wheezing GI Denies abdominal pain and Denies heartburn Musc Denies myalgias, Denies arthralgias and Denies joint swelling Skin/Breast Denies rash Neuro Denies memory loss and Denies seizure-like activity Psych Denies abnormal sleep pattern, Denies anxiety and Denies memory loss Endo Denies excessive sweating, Denies fatigue and Denies heat intolerance Hal/Lymph Denies easy bruising Aller/Immun Denies itchy eyes, Denies seasonal rhinorrhea and Denies wheezing Physical Exam Vital Signs: Last Vital Signs Pulse 81 06/28/24 11:17 BP 104/54 L 06/28/24 11:17 Pulse Ox 98 06/28/24 11:17 Oxygen Delivery Method Room Air 06/28/24 11:17 BMI result Body Mass Index 41.3 Const General: no acute distress and alert Nutritional Appearance: obese Orientation/consciousness: Other orientation findings ( oriented) HEENT Head: Yes atraumatic Mouth: other (Thrush) Eyes General: appearance normal, both eyes and all related structures Sclerae: sclerae normal EOM: EOMs intact bilaterally Neck Neck: Yes supple Lymphatic: no lymphadenopathy noted Resp Effort & Inspection: normal respiratory effort and no use of accessory muscles Auscultation: clear to auscultation bilaterally Cardio Rate: regular rate Rhythm: regular rhythm Heart sounds: no gallops, no murmurs and no rubs Skin General skin exam: other ( warm) Extrem General: No clubbing, No cyanosis and No edema Assessment & Plan Assessment & Plan (1) Dyspnea on exertion: Code(s): R06.00 - Dyspnea, unspecified Category: Medical Plan: Chronic, multifactorial, pulmonary component controlled with theophylline, Brovana, Breo, duo nebs, Spiriva, and albuterol MDI. (2) CONSTANTINO on CPAP: Code(s): G47.33 - Obstructive sleep apnea (adult) (pediatric); Z99.89 - Dependence on other enabling machines and devices Category: Medical Plan: Controlled on current CPAP therapy. Continue CPAP therapy. (3) GERD (gastroesophageal reflux disease): Code(s): K21.9 - Gastro-esophageal reflux disease without esophagitis Category: Medical Plan: Controlled on sucralfate and omeprazole. Continue current regimen. (4) Thrush: Code(s): B37.0 - Candidal stomatitis Category: Medical Plan: Will start on nystatin swish and spit. Medications: New omeprazole 40 mg PO DAILY 30 caps 6RF Refilled codeine-guaifenesin 10-100 mg/5 mL 10 mL PO Q4-6H PRN 473 mL 0RF cough J20.9 - Acute bronchitis, unspecified, J42 - Unspecified chronic bronchitis ipratropium-albuterol 0.5 mg-3 mg(2.5 mg base)/3 mL 3 mL inhalation Q4-6H 30 days PRN 270 mL 6RF wheezing J20.9 - Acute bronchitis, unspecified, J42 - Unspecified chronic bronchitis sucralfate (Carafate) 1 g PO TID 30 days 90 tabs 3RF arformoterol (Brovana) 2 mL inhalation BID 30 days 120 mL 6RF fluticasone furoate-vilanterol 200-25 mcg/dose (Breo Ellipta) 1 inh inhalation DAILY 30 days 1 ea 6RF theophylline ER 400 mg PO DAILY 90 tabs 2RF tiotropium bromide 1 cap inhalation DAILY 30 days 30 inhalations 6RF nystatin Swish and spit 3 times a day 500,000 units (5 mL) PO TID 7 days 105 mL 1RF Coding Level of Care Code Est Pt Level 4 (67478) Complex EM visit Add On G2211 Diagnoses Dyspnea on exertion R06.00 CONSTANTINO on CPAP G47.33; Z99.89 GERD (gastroesophageal reflux disease) K21.9 Thrush B37.0
--- OUTSIDE RECORDS SUMMARY | 2024-06-28 13:57 | XMS_ITS | Encounter Summary ---
Author Organization [facility] Address [address] [place] [address] Care Team Providers Care Auditing Specialist Name Role Phone Emily Barrera MD Primary Care Provider [phone] Encounter Details Date Type Department Care Team (Late st Contact Info) Description 06/16/2024 Telephone Internal Medicine - [place] 175 [facility] [address] [place] [phone] Emily Barrera MD 175 [facility] 200 [place] [address] Social History Tobacco Use Types Packs/Day Years Used Date Smoking Tobacco: Never Smokeless Tobacco: Never Alcohol Use Standard Drinks/Week Comments No 0 (1 standard drink = 0.6 oz pur e alcohol) Comments Unknown Sex and Gender Information Value Date Recorded Sex Assigned at Not on file Legal Sex Female 10:51 AM EST Gender Identity Not on file Sexual Orientation Not on file documented as of this encounter Ordered Prescriptions Prescription Sig Dispense Quantity Refills Last Filled Start Date End Date lidocaine (LIDODERM) 5 % patchIndications:D iabetic autonomic neuropathy associated with type 2 diabetes mellitus Apply 1 patch topically 1 (one) time each day. Remove & discard patch within 12 hours or as directed by . 10 patch 06/16/2024 documented in this encounter Progress Notes * Emily Barrera MD - 06/16/2024 6:55 PM EDT Sent to pharmacy with diagnosis * Mary Brady MA - 06/16/2024 3:24 PM EDT Please advise * Caroline Alexander - 06/16/2024 12:52 PM EDT called again same issue Lidocaine patches Called earlier this -states Pharmacy will not refill as no diag on for The lidocaine patch FYI * Caroline Alexander - 06/16/2024 12:50 PM EDT stated pharmacy will not fill this Without a diag re: need for the lidocaine patch documented in this encounter Plan of Treatment Upcoming Encounters Date Type Department Care Team (Late st Contact Info) Description 06/30/2024 11:00 AM EDT Office Visit Gastroenterology - [place] [address] [phone] Karthikeyan Mcdonnell DO 175 [facility] 200 [place] [address] 07/14/2024 3:00 PM EDT Office Visit Urogynecology - [place] [address] [place] [address] Cyn Rosario NP [address] [place] [address] [address] [place] [address] 08/31/2024 3:30 PM EDT Office Visit Internal Medicine - [place] 175 [facility] 200 [place] [phone] Emily Barrera MD 175 [facility] 200 [place] [address] documented as of this encounter Visit Diagnoses Diagnosis Diabetic autonomic neuropathy associated with type 2 diabetes mellitus- Primary Type II or unspecified type diabetes mellitus with neurological manifestations, not stated as uncontrolled documented in this encounter Discontinued Medications Medication Sig Discontinue Reason Start Date End Da te lidocaine (LIDODERM) 5 % patch Apply 1 patch topically 1 (one) time each day. Remove & discard patch within 12 hours or as directed by . Reorder 06/09/2024 06/16/2024 documented as of this encounter Care Teams Auditing Specialist Relationship Specialty Start Date End Date Emily Barrera MD [address] [phone] PCP - General Internal Medicine 03/27/14 documented as of this encounter
--- OUTSIDE RECORDS SUMMARY | 2024-06-28 13:57 | XMS_ITS | Encounter Summary ---
Author Organization [facility] Address [address] [place] [address] Care Team Providers Care [place] Drm Consultant Name Role Phone Emily Barrera MD Primary Care Provider [phone] Reason for Visit * Reason Onset Date Comments [place]ag[place]: Medication 06/08/2024 Encounter Details Date Type Department Care Team (Late st Contact Info) Description 06/08/2024 Telephone Internal Medicine - [place] [address] [facility] [address] [place] [address] Emily Barrera MD [address] [facility] [address] [place] [phone] [place]: Medication Social History Tobacco Use Types Packs/Day Years [...] Date End Date lidocaine (LIDODERM) 5 % patch Apply 1 patch topically 1 (one) time each day. Remove & discard patch within 12 hours or as directed by . 10 patch 06/09/2024 documented in this encounter Progress Notes * Emily Barrera MD - 06/09/2024 4:48 PM EST sent * Mary Brady MA - 06/08/2024 2:25 PM EST Please advise * Nemo Arteaga - 06/08/2024 10:16 AM EST Patient spouse called and requested lidocaine patches for her arthritis pain and pinched nerve painin her back. Please advise Cb# [phone] documented in this encounter Plan of Treatment Upcoming Encounters Date Type Department Care Team (Late st Contact Info) Description 06/30/2024 11:00 AM EDT Office Visit Gastroenterology - [place] 175 [facility] 175 [facility] [address] [place] [phone] Karthikeyan Mcdonnell DO 175 [facility] 200 [place] [address] 07/14/2024 3:00 PM EDT Office Visit Urogynecology [address] [phone] Cyn Rosario NP [address] [place] [address] [address] [place] [address] 08/31/2024 3:30 PM EDT Office Visit Internal Medicine - [place] [address] [facility] 200 [place] [phone] Emily Barrera MD 175 [facility] 200 [place] [phone] documented as of this encounter Visit Diagnoses Not on filedocumented in this encounter Care Teams [place] Drm Consultant Relationship Specialty Start Date End Date Emily Barrera MD [address] [place] [phone] PCP - General Internal Medicine 03/27/14 documented as of this encounter
--- OUTSIDE RECORDS SUMMARY | 2024-06-28 13:57 | XMS_ITS | Encounter Summary ---
Author Organization [facility] Address [address] [place] [address] Care Team Providers Care Research Instructor Name Role Phone Emily Barrera MD Primary Care Provider [phone] Encounter Details Date Type Department Care Team (Late st Contact Info) Description 06/17/2024 Telephone Internal Medicine - [place] 175 [facility] [address] [place] [phone] Emily Barrera MD 175 [facility] 200 [place] [address] Social History Tobacco Use Types [...] on file documented as of this encounter Progress Notes * Caroline Alexander - 06/28/2024 10:56 AM EDT Still waiting on the lidocaine patch * Natacha Nogueira - 06/17/2024 9:52 AM EDT Prior Authorization for Medication-do not complete and send this encounter unless you have the fax from the pharmacy. Is this a Cover My Meds request: NO Name of Medication LIDOCAINE PATCH Dose of Medication 5% What is the RX # from the faxed refill? [id number] How does patient take this med? Apply 1 patch topically 1 (one) time each day. Remove & discard patch within 12 hours or as directed by MD. What Pharmacy did the fax come from: [facility] Pharmacy fax #: [phone] [employer] Information from fax: What Prescription Plan does the patient have? BIN/PCN if applicable: [id number] Cardholder ID: [id number] Person Code: Relationship Code: Help desk phone: documented in this encounter Plan of Treatment Upcoming Encounters Date Type Department Care Team (Late st Contact Info) Description 06/30/2024 11:00 AM EDT Office Visit Gastroenterology - [place] [address] [phone] Karthikeyan Mcdonnell DO [address] [address] 07/14/2024 3:00 PM EDT Office Visit Urogynecology [address] [phone] Cyn Rosario NP [address] [place] [address] [address] [place] [address] 08/31/2024 3:30 PM EDT Office Visit Internal Medicine - [place] 175 [facility] 200 [place] [phone] Emily Barrera MD [address] [phone] documented as of this encounter Visit Diagnoses Not on filedocumented in this encounter Care Teams Research Instructor Relationship Specialty Start Date End Date Emily Barrera MD [address] [phone] PCP - General Internal Medicine 03/27/14 documented as of this encounter
--- OUTSIDE RECORDS SUMMARY | 2024-06-28 13:58 | XMS_ITS | Encounter Summary ---
Author Organization [facility] Address [address] [place] [address] Care Team Providers Care Blister Pack Operator Name Role Phone Emily Barrera MD Primary Care Provider [phone] Reason for Visit * Reason Onset Date Comments PRIOR AUTH 06/23/2024 Encounter Details Date Type Department Care Team (Late st Contact Info) Description 06/23/2024 Telephone Internal Medicine [facility] [address] [place] [address] Tahmina Jaquez MA PRIOR AUTH Social History Tobacco Use Types Packs/Day Years [...] Progress Notes * Caroline Alexander - 06/28/2024 10:58 AM EDT called Status of lidocaine patch * Tahmina Jaquez MA - 06/23/2024 10:23 AM EDT COVER MY MEDS FAX pa REQUEST ON RX lidocaine (LIDODERM) 5 % patch 1 patch, Topical, Daily Summary: Apply 1 patch topically 1 (one) time each day. Remove & discard patch within 12 hours or as directed by Cooper : [id number] Patient Last Name : EVE : 1970 documented in this encounter Plan of Treatment Upcoming Encounters Date Type Department Care Team (Late st Contact Info) Description 06/30/2024 11:00 AM EDT Office Visit Gastroenterology - [place] [address] [phone] Karthikeyan Mcdonnell DO [address] [address] 07/14/2024 3:00 PM EDT Office Visit Urogynecology [address] [phone] Cyn Rosario, [employer] [address] [facility] [address] [place] [address] 08/31/2024 3:30 PM EDT Office Visit Internal Medicine - [place] [address] [phone] Emily Barrera MD [address] [phone] documented as of this encounter Visit Diagnoses Not on filedocumented in this encounter Care Teams Blister Pack Operator Relationship Specialty Start Date End Date Emily Barrera MD [address] [phone] PCP - General Internal Medicine 03/27/14 documented as of this encounter
--- OUTSIDE RECORDS SUMMARY | 2024-06-28 13:58 | XMS_ITS | Clinical Summary ---
Author Organization 175 [facility] Address [address] [place] [address] Phone Care Team Providers Care Field Sales Consultant Name Role Phone Elda Barrera MD Primary Care Provider [phone] Allergies Active Allergy Reactions Criticality Noted Date Comments Clindamycin 03/02/2024 Glipizide 06/22/2019 Levofloxacin 09/09/2021 Metronidazole Itching 10/15/2020 Penicillins Rash,Hives High 05/29/2011 Sulfa (Sulfonamide Antibiotics) 07/07/2017 SOB Sulfadiazine 12/25/2023 difficulty breathing Medications isopropyl alcohol-benzocain e 70-6 % pads, medicated 1 each by Not Applicable route. 10/27/19 24 Active miconazole (Lotrimin AF) 2 % powder Apply powder to feet daily for 4 weeks 11/04/19 23 Active naproxen (NAPROSYN) 500 mg tablet 09/09/19 24 Active ondansetron ODT (ZOFRAN-ODT) 4 mg disintegrating tablet Take 1 tablet (4 mg total) by mouth. 04/19/19 24 Active predniSONE (DELTASONE) 20 mg tablet 03/19/20 23 Active traZODone (DESYREL) 100 mg tablet Take 1 Tablet by mouth at bedtime. 04/15/19 24 Active vibegron (Gemtesa) 75 mg tablet tablet Take 75 mg by mouth daily. 12/22/19 24 Active escitalopram (LEXAPRO) 10 mg tablet Take 1 tablet (10 mg total) by mouth 1 (one) time each day. 04/15/19 24 Active cholecalciferol (VITAMIN D-3) 25 mcg (1,000 unit) tablet Take 1 Tablet by mouth daily. 04/15/19 24 Active clobetasoL (TEMOVATE) 0.05 % cream To affected area 2 times daily for no more than 1 week. 04/15/19 24 Active clotrimazole (LOTRIMIN) 1 % cream Apply to skin daily for 6 weeks in between toes for fungus 04/15/19 24 Active cyclobenzaprine (FLEXERIL) 5 mg tablet TAKE 1 TABLET BY MOUTH AT BEDTIME NEEDED FOR MUSCLE SPASMS. 07/21/19 24 Active diclofenac (VOLTAREN) 1 % topical gel Apply 4 g topically 2 times daily. 04/15/19 24 Active fluticasone propionate (FLONASE) 50 mcg/actuation nasal spray 1 [place] by Nasal route daily. 04/15/19 24 Active hydrocortisone (ANUSOL-HC) 2.5 % rectal cream Apply 1 Dose topically 2 times daily. 04/15/19 24 Active flash glucose scanning reader (FreeStyle [place] 2 [place]) misc 1 Device by Does not apply route continuous. 06/02/19 24 Active flash glucose sensor (FREESTYLE SHELBY 2 SENSOR MISC) 1 Each by Does not apply route every 14 days. 06/02/19 24 Active INCONTINENCE PANTS, REUSABLE MISC 1 Each by Does not apply route 4 times daily as needed for Other. 04/15/19 24 Active blood-glucose meter kit USE DIRECTED CHECK SUGAR TWICE DAILY 04/22/19 23 Active ofloxacin (OCUFLOX) 0.3 % ophthalmic solution INSTILL 2 DROPS INTO BOTH EYES 4 TIMES DAILY FOR 5 DAYS 02/20/20 24 Active prednisoLONE acetate (PRED FORTE) 1 % ophthalmic suspension INSTILL 1 DROP IN BOTH EYES EVERY 4 HOURS FOR USE X 4 DAYS 02/28/20 24 Active pantoprazole (PROTONIX) 40 mg EC tablet Take 1 tablet (40 mg total) by mouth 1 (one) time each day before breakfast. Take 1 Tablet by mouth every morning (before breakfast). 60 tablet 1 04/07/19 25 Active Symbicort 160-4.5 mcg/actuation inhalerIndication s:Moderate persistent asthma without complication Inhale 1 puff by mouth 2 (two) times a day. Inhale 2 Puffs into the lungs 2 times daily. 3 each 04/08/19 25 Active tiotropium (SPIRIVA) 18 mcg per inhalation capsuleIndication s:Moderate persistent asthma without complication Place 1 capsule (18 mcg total) into inhaler and inhale 1 (one) time each day. Inhale 1 Capsule into the lungs daily. 90 each 04/08/19 25 Active ipratropium-albut Jose (DUONEB) 0.5-2.5 mg/3 mL nebulizer solutionIndicatio ns:Moderate persistent asthma without complication Take 3 mL by nebulization every 4 (four) hours if needed for wheezing. Inhale 3 mL into the lungs every 4 hours as needed for Other (wheezing). USE 3 ML VIA NEBULIZER EVERY 4 TO 6 HOURS NEEDED FOR WHEEZING 25 mL 04/08/19 25 Active albuterol sulfate (ProAir RespiClick) 90 mcg/actuation aerosol powdr breath activatedIndicati ons:Moderate persistent asthma without complication Inhale 2 puffs by mouth every 4 (four) hours if needed (sob). Inhale 1-2 Puffs into the lungs 4 times daily as needed for Other. 3 each 04/08/19 25 Active BD Insulin Syringe Ultra-Fine 0.5 mL 31 gauge x 5/16 syringeIndication s:Type 2 diabetes mellitus with diabetic polyneuropathy, with long-term current use of insulin ([facility]) Use tid with insulin lispro 100 each 04/08/19 25 Active alcohol swabs (Alcohol Wipes) pads, medicatedIndicati ons:Type 2 diabetes mellitus with diabetic polyneuropathy, with long-term current use of insulin ([facility]) Use 4 times daily with insulin 100 each 04/08/19 25 Active atorvastatin (LIPITOR) 10 mg tabletIndications :Mixed hyperlipidemia Take 1 tablet (10 mg total) by mouth at bedtime. 90 tablet 04/08/19 25 Active furosemide (LASIX) 40 mg tabletIndications :Lower leg edema Take 1 tablet (40 mg total) by mouth 1 (one) time each day if needed (lower leg edema). Take 1 Tablet by mouth daily. 90 tablet 04/08/19 25 Active meclizine (ANTIVERT) 12.5 mg tablet Take 1 tablet (12.5 mg total) by mouth 3 (three) times a day if needed for dizziness. Take 1 Tablet by mouth 2 times daily as needed (dizziness). 30 tablet 04/08/19 25 Active gemfibroziL (LOPID) 600 mg tabletIndications :Mixed hyperlipidemia Take 1 tablet (600 mg total) by mouth 2 (two) times a day. 180 tablet 05/05/19 25 Active gabapentin (NEURONTIN) 100 mg capsuleIndication s:Type 2 diabetes mellitus with diabetic polyneuropathy, with long-term current use of insulin (CMS/HCC) Take 1 capsule (100 mg total) by mouth 2 (two) times daily morning and afternoon. Take 1 Capsule by mouth every evening. 180 capsule 05/06/19 25 Active metFORMIN (GLUCOPHAGE) 1,000 mg tabletIndications :Type 2 diabetes mellitus with diabetic polyneuropathy, with long-term current use of insulin (CMS/HCC) Take 1 tablet (1,000 mg total) by mouth 2 (two) times a day with meals. 180 tablet 05/06/19 25 Active BD Ultra-Fine Short Pen Needle 31 gauge x 5/16 needleIndications :Type 2 diabetes mellitus with diabetic polyneuropathy, with long-term current use of insulin (CMS/HCC) Use qhs with lantusUse qhs with lantus 100 each 05/06/19 25 Active freestyle (FreeStyle Lancets) 28 gauge lancetsIndication s:Type 2 diabetes mellitus with diabetic polyneuropathy, with long-term current use of insulin (CMS/HCC) 1 Stick into the skin 4 times daily. E11.29 400 each 05/06/19 25 Active blood sugar diagnostic (FreeStyle Lite Strips) test stripIndications: Type 2 diabetes mellitus with diabetic polyneuropathy, with long-term current use of insulin (CMS/HCC) Use 4 times a day E11.9 400 each 05/06/19 25 Active insulin lispro 100 unit/mL injection Use Three times a day before meals: 100-149: 5 units, 150-199: 8 units units 200-249: 11 units, 250-299: 14 units 300-349: 16 units, 350-399: 17 units, >400: call me 05/06/19 25 Active insulin glargine,hum.rec. anlog (Basaglar KwikPen U-100 Insulin) 100 unit/mL (3 mL) injection pen Use 48 units at bedtime 45 mL 2 05/11/19 25 Active lidocaine (LIDODERM) 5 % patchIndications: Diabetic autonomic neuropathy associated with type 2 diabetes mellitus Apply 1 patch topically 1 (one) time each day. Remove & discard patch within 12 hours or as directed by . 10 patch 06/17/19 25 Active lidocaine (LIDODERM) 5 % patch Apply 1 patch topically 1 (one) time each day. Remove & discard patch within 12 hours or as directed by . 10 patch 06/10/19 25 025 Discontinu ed(Reorder ) fluconazole (DIFLUCAN) 150 mg tabletIndications :vulvovaginal candidiasis Take 1 tablet (150 mg total) by mouth 1 (one) time for 1 dose. Take one dose, and then take the second medication 3 days (72 hours) after 1 each 06/28/19 25 025 Active Problems Problem Noted Date Diagnosed Date Diabetic neuropathy 12/25/2023 Diabetes 12/25/2023 DM type 2 (diabetes mellitus, type 2) 12/25/2023 Insomnia due to anxiety and fear 12/25/2023 Migraines 12/25/2023 Arthritis 12/25/2023 Severe obesity 12/25/2023 Sinus headache 12/25/2023 Non compliance w medication regimen 06/02/2023 Myalgia 11/14/2021 Fatty liver 08/27/2020 Ventral hernia without obstruction or gangrene 0 08/27/2020 Dysuria 06/21/2020 Plantar fasciitis 04/24/2020 Simple chronic bronchitis 04/24/2020 Nabothian cyst 02/21/2020 Pelvic pain 02/21/2020 Atrophic vaginitis 01/12/2020 Eczema 12/06/2019 Lumbar radiculopathy 10/18/2019 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 [place]o Encounters Date Type Department Care Team Description 06/27/2024 1:30 PM EDT Procedure visit Urogynecology - [address] [phone] Kalani Obrien MD Microscopic hematuria (Primary Dx); Acute vaginitis; Urge incontinence; Urinary urgency; Urinary frequency; Nocturia; Women's annual routine gynecological examination 06/23/2024 Telephone Internal Medicine [facility] [address] [phone] Tahmina Jaquez MA PRIOR AUTH 06/17/2024 Telephone Internal Medicine [facility] [address] [phone] Elda Barrera MD 06/16/2024 Telephone Internal Medicine [facility] [address] [phone] Elda Barrera MD 06/08/2024 Telephone Internal Medicine [facility] [address] [phone] Elda Barrera MD [place]: Medication 05/10/2024 Telephone Endocrinology - [address] [phone] Nazia Enriquez PA Medication Problem (Alternative requested ) 05/06/2024 4:20 PM EST Office Visit Endocrinology [address] [phone] Nazia Enriquez PA Type 2 diabetes mellitus with diabetic polyneuropathy, with long-term current use of insulin ([facility]) 05/06/2024 1:30 PM EST Office Visit Internal Medicine [address] [phone] Elda Barrera MD Type 2 diabetes mellitus with diabetic polyneuropathy, with long-term current use of insulin ([facility]) (Primary Dx); Obstructive sleep apnea; Severe obesity ([facility]); Insomnia due to anxiety and fear 04/08/2024 1:00 PM EST Office Visit Internal Medicine - [address] [place] [address] Margarette Issa PA Type 2 diabetes mellitus with diabetic polyneuropathy, with long-term current use of insulin ([facility]) (Primary Dx); Mixed hyperlipidemia; Moderate persistent asthma without complication; Lower leg edema from Last 3 Months Surgical History Surgery Date Site/Laterality Comments TUBAL LIGATION 2002 PROCEDURE: HISTORICAL TUBAL LIGATION OTHER SURGICAL HISTORY PROCEDURE: ANESTHESIA FOR SECTION; COMMENT: x 3 COLONOSCOPY 04/12/2019 PROCEDURE: HISTORICAL COLONOSCOPY; COMMENT: Dr. Vazquez -grade 2 internal hemorrhoids, otherwise normal. Repeat 10 years. CHOLECYSTECTOMY 1989 PROCEDURE: HISTORICAL CHOLECYSTECTOMY; COMMENT: in [place] ESOPHAGOGASTRODUODENOSCOPY 02/1998 PROCEDURE: DE ESOPHAGOGASTRODUODENOSCOPY TRANSORAL DIAGNOSTIC; COMMENT: [place] -reportedly revealed evidence of a small hiatal hernia Medical History Medical History Date Comments Allergic rhinitis 02/09/2013 DX:Allergic rh initis Asthma 07/07/2017 DX:Asthma Cervical spondylosis 10/16/2014 DX:Cervical spondylosis Fibromyalgia 04/09/2016 DX:Fibromyalgia GERD (gastroesophageal reflux disease) 09/24/2016 DX:GERD (gastroesophageal reflux disease) History of rectal bleeding 08/15/2013 DX:Hi story of rectal bleeding Hyperlipidemia 07/21/2017 DX:Hyperlipidemi a Internal hemorrhoids 08/15/2013 DX:Internal hemorrhoids Irritable bowel syndrome 08/15/2013 DX:Irri table bowel syndrome Obstructive sleep apnea 02/25/2017 DX:Obstr uctive sleep apnea Anxiety 02/17/2012 DX:Anxiety; COMM ENT: psych Dr. Romeo Insomnia due to anxiety and fear DX:Insomnia due to anxiety and fear DM type 2 (diabetes mellitus , type 2) ([facility]) DX:DM type 2 (diabetes melli tus, type 2) ([facility]) Diabetic neuropathy ([facility]) DX :Diabetic neuropathy ([facility]) Morbid obesity with BMI of 4 0.0-44.9, adult ([facility]) DX:Morbid obesity with BMI o f 40.0-44.9, adult (HCC) Social History Tobacco Use Types Packs/Day Years Used Date Smoking Tobacco: Never Smokeless Tobacco: Never Tobacco Cessation:Counseling Given: Not Answered Alcohol Use Standard Drinks/Week Comments No 0 (1 standard drink = 0.6 oz pur e alcohol) Comments Unknown Sex and Gender Information Value Date Recorded Sex Assigned at Not on file Legal Sex Female 10:51 AM EST Gender Identity Not on file Sexual Orientation Not on file Obstetrics History Last Filed Vital Signs Vital Sign Reading Time Taken Comments Blood Pressure 111/76 05/06/2024 4:42 PM EST Pulse 84 05/06/2024 4:42 PM EST Temperature 36.2 ??C (97.2 ??F) 05/06/2024 4:42 PM ES T Respiratory Rate - - Oxygen Saturation 98% 05/06/2024 4:42 PM EST Inhaled Oxygen Concentration - - Weight 94 kg (207 lb 3.2 oz) 05/06/2024 4:42 PM EST Height 152.4 cm (5') 05/06/2024 4:42 PM EST Body Mass Index 40.47 05/06/2024 4:42 PM EST Plan of Treatment Upcoming Encounters Date Type Department Care Team (Late st Contact Info) Description 06/30/2024 11:00 AM EDT Office Visit Gastroenterology - Oral 175 [facility] [address] [phone] Karthikeyan Mcdonnell DO 175 [facility] 200 [place] [address] 07/14/2024 3:00 PM EDT Office Visit Urogynecology [address] [phone] Cyn Rosario NP [address] [place] [address] [address] [place] [address] 08/31/2024 3:30 PM EDT Office Visit Internal Medicine - Oral 175 [facility] 200 [place] [phone] Elda Barrera MD [address] [place] [address] [address] [place] [phone] Health Maintenance Due Date Last Done Comments Diabetes: Annual Foot Exam 1978 Diabetes: Annual Retina Eye Exam 1978 DTaP,Tdap,and Td Vaccines (1 - Tdap) 12/04/1987 Hepatitis A Vaccines (1 of 2 - Risk 2-dose series) 12/04/1987 Hepatitis B Vaccines (1 of 3 - 19+ 3-dose series) 12/04/1987 Pneumococcal Vaccine: 50+ Years (1 of 2 - PCV) 12/04/1987 Pneumococcal Vaccine: Pediatrics (0 to 5 Years) and At-Risk Patients (6 to 64 Years) (1 of 2 - PCV) 12/04/1987 Cervical Cancer Screening: P ap Smear 1989 Zoster Vaccines (1 of 2) 2018 Breast Cancer Screening 01/29/2020 01/28/2018 HIV Screening 03/15/2022 Hepatitis C Screening 03/15/2022 Medicare Annual Wellness Visit 03/15/2022 Social Influencers of Health Screening 03/15/2022 COVID-19 Vaccine (1 - 2023-2 5 season) 2023 Influenza Vaccine (#1) 2023 Depression Screening 04/15/2024 04/15/2023 Diabetes: Annual Urine Albumin-Creatinine Ratio (uACR) 07/09/2024 07/10/2023 Diabetes: Blood Sugar Contro l Test (HGBA1C) 08/30/2024 03/02/2024, 07/08/2023 Diabetes: Annual GFR (Glomerular Filtration Rate) 04/28/2025 04/28/2024, 03/02/2024, 07/08/2023 Hypertension/CHF/CAD Annual BMP Blood Test 04/28/2025 04/28/2024, 03/02/2024, 07/08/2023 Colorectal Cancer Screening: Colonoscopy 09/24/2028 09/25/2023 Cholesterol Screening (Lipid Panel) 04/28/2029 04/28/2024, 04/28/2024, 07/08/2023 HIB Vaccines Aged Out No longer eligi ble based on patient's age to complete this topic HPV Vaccines Aged Out No longer eligi ble based on patient's age to complete this topic IPV Vaccines Aged Out No longer eligi ble based on patient's age to complete this topic MMR Vaccines Aged Out No longer eligi ble based on patient's age to complete this topic Meningococcal ACWY Vaccine Aged Out N o longer eligible based on patient's age to complete this topic Meningococcal B Vacine Aged Out No lo nger eligible based on patient's age to complete this topic RSV Immunization Patients Under 20 months Aged Out No longer eligible b ased on patient's age to complete this topic Varicella Vaccines Aged Out No longer eligible based on patient's age to complete this topic Procedures Procedure Name Priority Date/Time Associated Diagnosis Comments TRICHOMONAS VAGINALIS ANTIGEN Routine 06/27/2024 1:38 PM EDT Acute vaginitis WET PREP, GENITAL Routine 06/27/2024 1:3 8 PM EDT Acute vaginitis POC GLUCOSE Routine 05/06/2024 5:10 PM EST Type 2 diabetes mellitus with diabetic polyneuropathy, with long-term current use of insulin ([facility]) POC GLUCOSE Routine 05/06/2024 2:34 PM EST Type 2 diabetes mellitus with diabetic polyneuropathy, with long-term current use of insulin ([facility]) LDL CHOLESTEROL, DIRECT Routine 04/28/2024 11:22 AM EST Mixed hyperlipidemia CREATINE KINASE Routine 04/28/2024 11:22 AM EST Mixed hyperlipidemia COMPREHENSIVE METABOLIC PANEL Routine 04/28/2024 11:22 AM EST Mixed hyperlipidemia LIPID PANEL WITH REFLEX TO DIRECT LDL Routine 04/28/2024 11:22 AM EST Mixed hyperlipidemia HEMOGLOBIN A1C Routine 03/02/2024 9:03 AM EST Enteritis Elevated alkaline phosphatase level Metabolic dysfunction-associate d steatotic liver disease (MASLD) Severe obesity ([facility]) Diabetes mellitus due to underlying condition with diabetic amyotrophy, with long-term current use of insulin ([facility]) HM COLONOSCOPY Routine 09/25/2023 URINE ALBUMIN CREATININE RATIO Routine 07/10/2023 DEPRESSION SCREENING Routine 04/15/2023 FRANCIS SCREENING DIGITAL Routine 01/28/2018 12:05 PM EDT Encounter for screening mammogram for malignant neoplasm of breast from Last 3 Months or Most Recently Relevant to Health Maintenance Results * Trichomonas vaginalis antigen (06/27/2024 1:38 PM EDT) Trichomonas vaginalis Negative Negative 06/27/2024 6:49 PM EDT [facility] Swab Vaginal structure / Unknown Non-blood Collection / Unknown 06/27/2024 1:38 PM EDT 06/27/2024 1:38 PM EDT us Kalani Obrien MD LAB MICROBIOLOGY - GENERAL ORDER CORONA Final Result Performing Organization Address City/[facility] Co de Phone Number [facility] [address] [place] [address], [place] [phone] * Wet prep, genital (06/27/2024 1:38 PM EDT) Clue Cells, Wet Prep Negative Negative 06/27/2024 6:47 PM EDT [facility] Yeast, Wet Prep Negative Negative 06/27/2024 6:47 PM EDT [facility] Trichomonas, Wet Prep Indeterminate Negative 06/27/2024 6:47 PM EDT [facility] Comment:Refer to Trichomonas antigen. Swab Vaginal structure / Unknown Non-blood Collection / Unknown 06/27/2024 1:38 PM EDT 06/27/2024 1:38 PM EDT us Kalani Obrien MD LAB MICROBIOLOGY - GENERAL ORDER COR[place] Final Result [facility] [address] [place] [address], [place] [phone] * (ABNORMAL) POC glucose manually resulted (05/06/2024 5:10 PM EST) Only the most recent of2 resultswithin the time period is included. Glucose POC 234 mg/dL Comment:non fasting Blood Capillary blood specimen / Unknown 05/06/2024 5:10 PM EST Nazia KOVACS POINT OF CARE TEST ENTER/EDIT OR DERABLES Final Result * (ABNORMAL) Lipid panel with reflex to direct LDL (04/28/2024 11:22 AM EST) [facility] Cholesterol 242(H) 0 - 200 mg/dL LAB CHEMISTRY METHOD 04/28/2024 3:06 PM [facility] Triglycerides 735(H) 0 - 150 mg/dL LAB CHEMISTRY METHOD 04/28/2024 3:06 PM [facility] HDL 39(L) >=40 mg/dL LAB CHEMISTRY METHOD 04/28/2024 3:06 PM [facility] LDL Calculated LAB CHEMISTRY METHOD 04/28/2024 3:06 PM [facility] Comment: Unable to calculate when triglycerides >400 mg/dL. Triglyceride value is >= 500. ??Calculated LDL is not meaningful. ??Direct LDL has been added. VLDL Cholesterol Sathya LAB CHEMISTRY METHOD 04/28/2024 3:06 PM [facility] Comment:Unable to calculate when triglycerides >400 mg/dL. Non HDL Chol. (LDL+VLDL) LAB CHEMISTRY METHOD 04/28/2024 3:06 PM [facility] Comment:Unable to calculate when triglycerides >400 mg/dL. Chol/HDL Ratio 6.2(H) 0.0 - 4.4 LAB CHEMISTRY METHOD 04/28/2024 3:06 PM [facility] Blood Venous blood specimen / Unknown Venipuncture / Unknown 04/28/2024 11:22 AM EST 04/28/2024 11:22 AM EST us Margarette KOVACS LAB BLOOD ORDERABLES Fin al Result Performing Organization Address City/[facility]/ZIP Co de Phone Number [facility] [address] [place] [address], [place] [phone] * LDL cholesterol, direct (04/28/2024 11:22 AM EST) Pathologist [facility] LDL Direct 81 <=100 mg/dL LAB CHEMISTRY METHOD 04/28/2024 3:17 PM EST [facility] Blood Venous blood specimen / Unknown Venipuncture / Unknown 04/28/2024 11:22 AM EST 04/28/2024 11:22 AM EST us Margarette KOVACS LAB BLOOD ORDERABLES Fin al Result Performing Organization Address [facility]/ZIP Co de Phone Number [facility] [address] [place] [address], [place] [phone] * Creatine kinase (04/28/2024 11:22 AM EST) [facility] Total CK 31 22 - 269 unit/L LAB CHEMISTRY METHOD 04/28/2024 3:02 PM EST [facility] Blood Venous blood specimen / Unknown Venipuncture / Unknown 04/28/2024 11:22 AM EST 04/28/2024 11:22 AM EST us Margarette KOVACS LAB BLOOD ORDERABLES Fin al Result [facility] [address] [place] [address], [place] [phone] * (ABNORMAL) Comprehensive metabolic panel (04/28/2024 11:22 AM EST) Sodium 137 133 - 145 mmol/L LAB CHEMISTRY METHOD 04/28/2024 3:06 PM [facility] Potassium 3.9 3.5 - 5.5 mmol/L LAB CHEMISTRY METHOD 04/28/2024 3:06 PM [facility] Chloride 104 96 - 110 mmol/L LAB CHEMISTRY METHOD 04/28/2024 3:06 PM [facility] CO2 26 21 - 32 mmol/L LAB CHEMISTRY METHOD 04/28/2024 3:06 PM [facility] Anion Gap 7 3 - 11 LAB CHEMISTRY METHOD 04/28/2024 3:06 PM [facility] Glucose 193(H) 70 - 100 mg/dL LAB CHEMISTRY METHOD 04/28/2024 3:06 PM [facility] BUN 12 5 - 25 mg/dL LAB CHEMISTRY METHOD 04/28/2024 3:06 PM [facility] Creatinine 0.52 0.50 - 1.10 mg/dL LAB CHEMISTRY METHOD 04/28/2024 3:06 PM [facility] eGFR 110 >=60 mL/min/1. 73m2 LAB CHEMISTRY METHOD 04/28/2024 3:06 PM [facility] Comment:Calculation based on the??Chronic Kidney Disease Epidemiology Collaboration (CKD-EPI) equation refit??without adjustment for race. BUN/Creatinine Ratio 23.1 LAB CHEMISTRY METHOD 04/28/2024 3:06 PM [facility] Calcium 9.2 8.5 - 10.5 mg/dL LAB CHEMISTRY METHOD 04/28/2024 3:06 PM [facility] AST (SGOT) 28 10 - 42 unit/L LAB CHEMISTRY METHOD 04/28/2024 3:06 PM [facility] ALT (SGPT) 32 10 - 60 unit/L LAB CHEMISTRY METHOD 04/28/2024 3:06 PM [facility] Alkaline Phosphatase 135(H) 42 - 121 unit/L LAB CHEMISTRY METHOD 04/28/2024 3:06 PM EST [facility] Total Protein 7.8 6.0 - 8.0 g/dL LAB CHEMISTRY METHOD 04/28/2024 3:06 PM [facility] Albumin 3.1(L) 3.2 - 5.0 g/dL LAB CHEMISTRY METHOD 04/28/2024 3:06 PM EST [facility] Total Bilirubin 1.0 0.0 - 1.4 mg/dL LAB CHEMISTRY METHOD 04/28/2024 3:06 PM [facility] Blood Venous blood specimen / Unknown Venipuncture / Unknown 04/28/2024 11:22 AM EST 04/28/2024 11:22 AM EST us Margarette [facility] LAB BLOOD ORDERABLES Fin al Result Performing Organization Address City/[facility]/ZIP Co de Phone Number [facility] [address] [place] [address], [place] [phone] * (ABNORMAL) Hemoglobin A1c (03/02/2024 9:03 AM EST) Hemoglobin A1C 10.2(H) <6.5 % LAB CHEMISTRY METHOD 03/02/2024 1:54 PM EST [facility] Mean Bld Glu Estim. 246 mg/dL LAB CHEMISTRY METHOD 03/02/2024 1:54 PM EST [facility] Blood Venous blood specimen / Unknown Venipuncture / Unknown 03/02/2024 9:03 AM EST 03/02/2024 9:04 AM EST us Karthikeyan Mcdonnell DO LAB BLOOD ORDERABLES Final Resul t Performing Organization Address [facility]/ZIP Co de Phone Number [facility] [address] [place] [address], [place] [phone] * Hm Colonoscopy (09/25/2023) Colonoscopy No Interpretation , Abstracted Anatomical Region Laterality Modality Other Historical Provider HEALTH MAINTENANCE Final Result * Urine Albumin Creatinine Ratio (07/10/2023) Pathologist [facility] Urine Albumin Creatinine Ratio Abstracted Historical Provider HEALTH MAINTENANCE Final Result * Depression Screening (04/15/2023) Pathologist [facility] Depression Screening Abstracted Historical Provider HEALTH MAINTENANCE Final Result * FRANCIS SCREENING DIGITAL (01/28/2018 12:05 PM EDT) Anatomical Region Laterality Modality Mammography 01/28/2018 10:3 8 AM EDT Narrative 01/28/2018 12:05 PM EDT [facility] Diagnostic Imaging Department [address] [place] [address] Patient: ??RITA PRADO ?/Age/Sex: 1970 - 47 - F Unit#: ??[id number] ? Location/Status: ??SPDIMAM/REG CLI ? Mnemonic/Ordering Site: ??DIGSC/SPMAM Ordering Physician: ??ELDA BARRERA MD Francis Screening Digital - 01/28/18 - EXAM: [facility] Screening Digital EXAM DATE AND TIME: 01/28/2018 11:35 AM HISTORY: ??Screening. COMPARISON: ??09/10/15, 08/01/13, 11/01/11 TECHNIQUE: CC and MLO views of both breasts were obtained using full field digital mammography. Bilateral digital breast tomosynthesis was performed in the MLO projection. Computer aided detection with the [employer] 7.2-H was employed. TISSUE DENSITY: b. There are scattered areas of fibroglandular density. FINDINGS: No suspicious masses, grouped microcalcifications, or areas of architectural distortion are seen. A few benign microcalcifications are again seen in the right breast. The skin and vascularity are unremarkable. IMPRESSION: Stable mammographic appearance of the breasts. ??No evidence of malignancy is seen. A negative mammogram in the presence of a clinically suspicious palpable abnormality does not preclude the possibility of malignancy or alter the indications for biopsy. BI-RADS: ??Category 2: Benign RECOMMENDATION(S): 1: Routine screening mammogram BILATERAL in 1 year. 88396, 49928 3342F, 7025F Dictating Physician: ??YAQUELIN LOMELI MD Electronically Signed by: ??YAQUELIN LOMELI MD Dic Date/Time: ??01/28/18 120 Sign date/Time: ??01/28/18 1205 Procedure Note Yaquelin Lomeli MD - 03/25/2022 [facility] Diagnostic Imaging Department [address] [place] [id number] Patient: RITA PRADO D.O.B./Age/Sex: 1970 - 47 - F Unit#: [id number] Location/Status: [facility] Mnemonic/Ordering Site: [facility] Ordering Physician: ELDA BARRERA MD [facility] Screening Digital - 01/28/18 - EXAM: [facility] Screening Digital EXAM DATE AND TIME: 01/28/2018 11:35 AM HISTORY: Screening. COMPARISON: 09/10/15, 08/01/13, 11/01/11 TECHNIQUE: CC and MLO views of both breasts were obtained using fullfield digital mammography. Bilateral digital breast tomosynthesis was performedin the MLO projection. Computer aided detection with the Minded.2-NanoAntibioticsas employed. TISSUE DENSITY: b. There are scattered areas of fibroglandular density. FINDINGS: No suspicious masses, grouped microcalcifications, or areas ofarchitectural distortion are seen. A few benign microcalcifications are again seen inthe right breast. The skin and vascularity are unremarkable. IMPRESSION: Stable mammographic appearance of the breasts. No evidence of malignancyis seen. A negative mammogram in the presence of a clinically suspicious palpable abnormality does not preclude the possibility of malignancy or alter the indications for biopsy. BI-RADS: Category 2: Benign RECOMMENDATION(S): 1: Routine screening mammogram BILATERAL in 1 year. 69902, 63247 3342F, 7025F Dictating Physician: YAQUELIN LOMELI MD Electronically Signed by: YAQUELIN LOMELI MD Dic Date/Time: 01/28/18 1205 Sign date/Time: 01/28/18 120 [facility] Yumi Barrera MD IMG BI PROCEDURES Final Result from Last 3 Months or Most Recently Relevant to Health Maintenance Insurance MEDICARE MEDICAID - [place] Care Teams Field Sales Consultant Relationship Specialty Start Date End Date Elda Barrera MD [address] [place] [address] [address] [place] [phone] PCP - General Internal Medicine 03/27/14
--- OUTSIDE RECORDS SUMMARY | 2024-06-28 13:58 | XMS_ITS | Encounter Summary ---
Author Organization [facility] Address [address] [place] [address] Care Team Providers Care Dope Worker Name Role Phone Emily Barrera MD Primary Care Provider [phone] Reason for Referral * Consultation (Routine) - Authorized Specialty Diagnoses / Procedures Referred By Leti lopez Referred To Contact Gynecology Diagnoses Acute vaginitis Women's annual routine gynecological examination Kalani Obrien MD [address] [facility] [address] [place] [address] Phone: tel: fax: Referral ID Status Reason Start Date Expiration Date Visits Requested Visits Authorized [id number] Authorized Specialty Services Required 06/27/2024 06/27/2025 1 1 Reason for Visit * Reason Comments Special procedure Encounter Details Date Type Department Care Team (Latest Contact Info) Description 06/27/2024 1:30 PM EDT Procedure visit Urogynecology [address] [phone] Kalani Obrien MD [address] [place] [address] Microscopic hematuria (Primary Dx); Acute vaginitis; Urge incontinence; Urinary urgency; Urinary frequency; Nocturia; Women's annual routine gynecological examination Social History Tobacco Use Types Packs/Day Years [...] Refills Last Filled Start Date End Date fluconazole (DIFLUCAN) 150 mg tabletIndications: vulvovaginal candidiasis Take 1 tablet (150 mg total) by mouth 1 (one) time for 1 dose. Take one dose, and then take the second medication 3 days (72 hours) after 1 each 06/27/2024 documented in this encounter Progress Notes * Kalani Obrien MD - 06/27/2024 1:30 PM EDT You had a cystoscopy (bladder camera test) performed It can be normal to experience a mild burning sensation for the next 24 hours as well as blood in the urine Everything looked good inside your bladder You may take over the counter bladder pain medication for urinary discomfort such as pyridium Drink fluids, such as water, as much as tolerated right after the procedure to increase your urine output and to help with flushing out your bladder Avoid bladder irritants such as caffeine, carbonated beverages, spicy foods or fluids high in acid if your bladder is feeling irritated (see below). Return to your normal diet as tolerated. Make sure you have an appointment scheduled with your provider to go over your testing results Please call the office if you develop: Frequent urination accompanied by either one or all of the following: Pain Chills Temperature of 100.4o Fahrenheit (38o Celsius) or greater Bladder Diet Alcoholic Beverages Tomatoes / Tomato Juice Vitamin C Coffee & Tea (even decaf) Apples Vinegar Carbonated Beverages Pineapple & Lizandro Artificial Sweeteners [place] & Apple Juice Shorty & Limes Pepper Chocolate Grapefruit & Other [place] Fruits Nectarines & Peaches Lemon Juice Cranberry Strawberries [place] / Spicy Seasonings Grapes, Peaches, Plums Cantaloupes * Kalani Obrien MD - 06/27/2024 1:30 PM EDT UROGYNECOLOGY PROCEDURE VISIT - DIAGNOSTIC CYSTOSCOPY Rita Carlin presented today for cystourethroscopy, for the evaluation of: microscopic hematuriain setting of lower urinary tract symptoms At her last visit (12/22/2023), our plan was as follows: Overactive bladder / urgency urinary incontinence: Lifestyle and behavioral modifications; Gemtesa 75mg; (PFPT) Microscopic hematuria: await urine culture and microscopic uinalysis results Pelvic floor myalgia: PFPT Her microscopic UA on 12/22/2023 had 5 RBCs in the setting of a negative urine culture. She underwent a renal US on 01/05/2024, without any renal abnormalities observed. She cancelled her appointment with Dr. Jeana Garnica, which was scheduled on 03/17/2024 She is additionally followed for: - uncontrolled diabetes, with last hemoglobin A1c 10.2 on 03/02/2024 Today, she reports vulvar and vaginal pruritus; she also reports a growth behind her ear, which hasbecome bigger with her new vulvar/vaginal symptoms, which started 2 days ago. She has been using Monistat 7 for 2 doses. Insertion caused pain. Of note, she does not have a lip reading teacher. The procedure, risks, complications and alternatives were reviewed with the patient and she wishes to proceed. Informed consent form was reviewed with patient, questions answered, and consent signed prior to beginning procedure. CYSTOURETHROSCOPY The patient was placed in dorsal lithotomy position, then the urethral meatus was prepped with Betadine. Under sterile techniques a straight cath was inserted to obtain a urine sample prior to performing the cystourethroscopy. Specimen was collected without difficulty, and a urine dip was performed, interpreted it as heme + Anesthetic used: 5 ml of 2% lidocaine gel Video-assisted cystourethroscopy was performed using a 21 [place] 30 degree rigid cystoscope with normal saline infusion. The cystoscope was advanced into the bladder, and the bladder was evaluated entirely. Findings: - Bladder mucosa normal in appearance - Trabeculations present - No evidence of stones, neoplasia, bladder diverticulum - Trigone with squamous metaplasia - Ureteral orifices in normal orthotopic position without abnormalities noted. - Bilateral ureteral efflux appreciated with clear urine The cystoscope was withdrawn to the level of the urethrovesical junction. Infusion was restarted, and the urethra was evaluated along its length as the cystoscope was withdrawn. Findings: - No evidence of inflammation, diverticulum, or other abnormality. - No evidence of obstruction or stenosis. The patient tolerated the procedure well and was given an immediate dose of periprocedural antibiotics and phenazopyridine. There were no complications. Vulvar/vaginal pruritus: - Vaginitis swab collected today - Prescription for diflucan 150mg PO x2 (the second for 72 hours after first dose) - Referral to gynecology made as patient does not currently have a gynecology provider. PLAN: Vulvar/vaginal pruritus: diflucan 150mg PO x2; glucose control; hospice fellow referral Overactive bladder / urgency urinary incontinence: Lifestyle and behavioral modifications; Gemtesa 75mg; (PFPT); GLUCOSE CONTROL Microscopic hematuria: s/p normal renal ultrasound 01/05/2024; s/p cysto 06/27/2024 (squamous metaplasia, trabeculations) Pelvic floor myalgia: PFPT RTO: for medication follow up when able with MD or EXPANDER Kalani Obrien MD 06/27/2024 documented in this encounter Plan of Treatment Upcoming Encounters Date Type Department Care Team (Late st Contact Info) Description 06/30/2024 11:00 AM EDT Office Visit Gastroenterology - [address] [phone] Karthikeyan Mcdonnell DO 175 [facility] [address] [place] [address] 07/14/2024 3:00 PM EDT Office Visit Urogynecology - [address] [phone] Cyn Rosario NP [address] [place] [address] [address] [place] [address] 08/31/2024 3:30 PM EDT Office Visit Internal Medicine - [place] [address] [facility] [address] [place] [address] Emily Barrera MD 175 [facility] [address] [place] [phone] Scheduled Referrals Name Type Priority Associated Diagnoses Orde r Schedule Ambulatory referral to Gynecology Outpatient Referral Routine Acute vaginitis Women's annual routine gynecological examination 1 Occurrences starting 06/27/2024 until 06/27/2025 documented as of this encounter Procedures Procedure Name Priority Date/Time Associated Diagnosis Comments TRICHOMONAS VAGINALIS ANTIGEN Routine 06/27/2024 1:38 PM EDT Acute vaginitis WET PREP, GENITAL Routine 06/27/2024 1:3 8 PM EDT Acute vaginitis documented in this encounter Results * Trichomonas vaginalis antigen (06/27/2024 1:38 PM EDT) Trichomonas vaginalis Negative Negative 06/27/2024 6:49 PM EDT [facility] Swab Vaginal structure / Unknown Non-blood Collection / Unknown 06/27/2024 1:38 PM EDT 06/27/2024 1:38 PM EDT us Kalani Obrien MD LAB MICROBIOLOGY - GENERAL ORDER CORONA Final Result [facility] [address] [place] [address], * Wet prep, genital (06/27/2024 1:38 PM [...] MICROBIOLOGY - GENERAL ORDER COR[place] Final Result [facility] ([facility]) [facility] [address] [place] [address], documented in this encounter Visit Diagnoses Diagnosis Microscopic hematuria- Primary Acute vaginitis Unspecified vaginitis and vulvovaginitis Urge incontinence Urinary urgency Urgency of urination Urinary frequency Nocturia Women's annual routine gynecological examination documented in this encounter Care Teams Dope Worker Relationship Specialty Start Date End Date Emily Barrera MD [address] [phone] PCP - General Internal Medicine 03/27/14 documented as of this encounter
== END 2024-06-28 11:44 | disposition home or self-care (01) ==
LOC: HO.HPS 11:14
PROVIDERS: PCP Internal Medicine; Visit Provider Internal Medicine Pulmonary Disease
DX: R06.00 Dyspnea, unspecified (principal); G47.33 Obstructive sleep apnea (adult) (pediatric); Z99.89 Dependence on other enabling machines and devices; K21.9 Gastro-esophageal reflux disease without esophagitis; B37.0 Candidal stomatitis
CPT/HCPCS: 99214; G2211

== ENCOUNTER → 2024-06-28 11:13 | Outpatient (BNVA) | payer MEDICARE, MEDICAID, SELFPAY | PROVIDERS: PCP Internal Medicine; Visit Provider Internal Medicine Pulmonary Disease | DX: J42 Unspecified chronic bronchitis (principal); J45.909 Unspecified asthma, uncomplicated; G47.33 Obstructive sleep apnea (adult) (pediatric); E66.01 Morbid (severe) obesity due to excess calories; R06.00 Dyspnea, unspecified; K21.9 Gastro-esophageal reflux disease without esophagitis; B37.0 Candidal stomatitis; Z99.89 Dependence on other enabling machines and devices | CPT/HCPCS: 99212 ==

== ENCOUNTER 2024-09-27 14:18 | Outpatient (AMB) | payer MEDICARE, MEDICAID, SELFPAY ==
[2024-09-27 14:21] VITALS: BP 122/64; PULSE 92; O2SAT 97; BMI 40.0
--- NOTE | 2024-09-27 14:21 | MHC.OFFVIS ---
Vital Signs 09/27/24 14:21 Height 5 ft Weight 205 lb BMI 40.0 BP 122/64 Blood Pressure Location Rt brachial Position Sitting Pulse 92 Pulse Source Pulse Oximeter Pulse Oximetry (%) 97 Oxygen Delivery Method Room Air Intake Visit Reasons: asthma Station Detective Required: Yes Station Detective Name: Seema Franks Allergies clindamycin Allergy (Severe, Verified 09/27/24 14:26) Gastrointestinal Upset penicillin V Allergy (Severe, Verified 09/27/24 14:26) Dizziness/Closed Trachea Sulfa (Sulfonamide Antibiotics) Allergy (Severe, Verified 09/27/24 14:26) Dizziness/Closed Trachea HPI HPI asthma: Details: 53-year-old lady, lifetime nonsmoker, with underlying super morbid obesity followed for CONSTANTINO, dyspnea on exertion, and chronic bronchitis. ?She continues to use Breo, Spiriva, Brovana, and albuterol MDI with suboptimal control of her symptoms.? She has completed her 2D echocardiogram and was normal.? She continues to complain of dyspnea with exertion and fatigue.? She has been using her CPAP with reasonable control of her CONSTANTINO symptoms. She continues on Carafate for her GERD. Patient states that after the last office visit her also has got better, but over the last several days came back now also with odynophagia. [facility] Medical History (Updated 06/28/24 @ 11:46 by Chacho Saul MD) Hypertension Hypertriglyceridemia Poorly controlled type 2 diabetes mellitus Dyspnea on exertion Chronic bronchitis CONSTANTINO on CPAP GERD (gastroesophageal reflux disease) History of pancreatitis Morbid obesity Social History Patient Tobacco Use Status: Never used Tobacco Review of Systems Const Denies daytime sleepiness, Denies excessive sweating, Denies fatigue, Denies fever(s), Denies lethargy, Denies malaise, Denies night sweats, Denies snoring and Denies weight loss Eyes Denies blurry vision and Denies itchy eyes ENT Denies nasal congestion, Denies post nasal drip, Denies sinus pain, Denies sinus pressure and Denies other ( Thrush) Card Denies chest pain, Denies pedal edema, Denies dyspnea, Denies orthopnea and Denies paroxysmal nocturnal dyspnea Resp Denies cough, Denies hemoptysis, Denies excessive phlegm production, Denies dyspnea, Denies snoring and Denies wheezing GI Denies abdominal pain and Denies heartburn Musc Denies myalgias, Denies arthralgias and Denies joint swelling Skin/Breast Denies rash Neuro Denies memory loss and Denies seizure-like activity Psych Denies abnormal sleep pattern, Denies anxiety and Denies memory loss Endo Denies excessive sweating, Denies fatigue and Denies heat intolerance Hal/Lymph Denies easy bruising Aller/Immun Denies itchy eyes, Denies seasonal rhinorrhea and Denies wheezing Physical Exam Vital Signs: Last Vital Signs Pulse 92 09/27/24 14:21 BP 122/64 09/27/24 14:21 Pulse Ox 97 09/27/24 14:21 Oxygen Delivery Method Room Air 09/27/24 14:21 BMI result Body Mass Index 40.0 Const General: no acute distress and alert Nutritional Appearance: obese Orientation/consciousness: Other orientation findings ( oriented) HEENT Head: Yes atraumatic Eyes General: appearance normal, both eyes and all related structures Sclerae: sclerae normal EOM: EOMs intact bilaterally Neck Neck: Yes supple Lymphatic: no lymphadenopathy noted Resp Effort & Inspection: normal respiratory effort and no use of accessory muscles Auscultation: clear to auscultation bilaterally Cardio Rate: regular rate Rhythm: regular rhythm Heart sounds: no gallops, no murmurs and no rubs Skin General skin exam: other ( warm) Extrem General: No clubbing, No cyanosis and No edema Assessment & Plan Assessment & Plan (1) Thrush: Code(s): B37.0 - Candidal stomatitis Category: Medical Plan: Also with esophagitis symptoms, will start on fluconazole. (2) CONSTANTINO on CPAP: Code(s): G47.33 - Obstructive sleep apnea (adult) (pediatric); Z99.89 - Dependence on other enabling machines and devices Category: Medical Plan: Continue CPAP therapy. (3) Dyspnea on exertion: Code(s): R06.00 - Dyspnea, unspecified Category: Medical Plan: Reasonable control on current regimen of Brovana, Symbicort, duo nebs, theophylline, and Spiriva. Continue current regimen. (4) GERD (gastroesophageal reflux disease): Code(s): K21.9 - Gastro-esophageal reflux disease without esophagitis Category: Medical Plan: Reasonable control on PPI and Carafate. Continue current regimen. Medications: New fluconazole 200 mg PO DAILY 7 tabs 0RF azithromycin (Zithromax Z-Lennox) For 250 mg dose pack: take 500 mg today (day 1), then 250 mg for 4 days (days 2-5) PO 6 tabs 0RF Coding Level of Care Code Est Pt Level 4 (73640) Complex EM visit Add On G2211 Diagnoses Thrush B37.0 CONSTANTINO on CPAP G47.33; Z99.89 Dyspnea on exertion R06.00 GERD (gastroesophageal reflux disease) K21.9
--- OUTSIDE RECORDS SUMMARY | 2024-09-27 17:27 | XMS_ITS | Clinical Summary ---
Author Organization 175 [facility] Address [address] [place] [address] Phone Care Team Providers Care Manufacturing Engineer Machining Name Role Phone Elda Barrera MD Primary Care Provider Allergies Active Allergy Reactions Criticality Noted Date Comments Clindamycin 03/02/2024 Glipizide 06/22/2019 Levofloxacin 09/09/2021 Metronidazole Itching 10/15/2020 Penicillins Rash,Hives High 05/29/2011 Sulfa (Sulfonamide Antibiotics) 07/07/2017 SOB Sulfadiazine 12/25/2023 difficulty breathing Medications isopropyl alcohol-benzocaine 70-6 % pads, medicated 1 each by [...] by mouth at bedtime. 04/15/19 24 Active escitalopram (LEXAPRO) 10 mg tablet [...] propionate (FLONASE) 50 mcg/actuation nasal spray 1 [place] by Nasal route daily. 04/15/19 24 Active hydrocortisone (ANUSOL-HC) 2.5 % rectal cream Apply 1 Dose topically 2 times daily. 04/15/19 24 Active flash glucose scanning reader (FreeStyle [place] 2 [place]) misc 1 Device by Does not apply [...] USE X 4 DAYS 02/28/20 24 Active Symbicort 160-4.5 mcg/actuation inhalerIndications :Moderate persistent asthma without complication Inhale 1 puff by mouth 2 (two) times a day. Inhale 2 Puffs into the lungs 2 times daily. 3 each 1 04/08/19 25 Active tiotropium (SPIRIVA) 18 mcg per inhalation capsuleIndications :Moderate persistent asthma without complication Place 1 capsule (18 mcg total) into inhaler and inhale 1 (one) time each day. Inhale 1 Capsule into the lungs daily. 90 each 04/08/19 25 Active ipratropium-albute roL (DUONEB) 0.5-2.5 mg/3 mL nebulizer solutionIndication s:Moderate persistent asthma without complication Take 3 mL by nebulization every 4 (four) hours if needed for wheezing. Inhale 3 mL into the lungs every 4 hours as needed for Other (wheezing). USE 3 ML VIA NEBULIZER EVERY 4 TO 6 HOURS NEEDED FOR WHEEZING 25 mL 04/08/19 25 Active albuterol sulfate (ProAir RespiClick) 90 mcg/actuation aerosol powdr breath activatedIndicatio ns:Moderate persistent asthma without complication Inhale 2 puffs by mouth every 4 (four) hours if needed (sob). Inhale 1-2 Puffs into the lungs 4 times daily as needed for Other. 3 each 04/08/19 25 Active atorvastatin (LIPITOR) 10 mg tabletIndications: Mixed hyperlipidemia Take 1 tablet (10 mg total) by mouth at bedtime. 90 tablet 04/08/19 25 Active furosemide (LASIX) 40 mg tabletIndications: Lower leg edema Take 1 tablet (40 mg [...] 04/08/19 25 Active gemfibroziL (LOPID) 600 mg tabletIndications: Mixed hyperlipidemia Take 1 tablet (600 mg total) by mouth 2 (two) times a day. 180 tablet 05/05/19 25 Active gabapentin (NEURONTIN) 100 mg capsuleIndications :Type 2 diabetes mellitus with diabetic polyneuropathy, with long-term current use of insulin ([facility] V24, CMS/[facility] V28) Take 1 capsule (100 mg total) by mouth 2 (two) times daily morning and afternoon. Take 1 Capsule by mouth every evening. 180 capsule 05/06/19 25 Active metFORMIN (GLUCOPHAGE) 1,000 mg tabletIndications: Type 2 diabetes mellitus with diabetic polyneuropathy, with long-term current use of insulin ([facility] V24, CMS/[facility] V28) Take 1 tablet (1,000 mg total) by mouth 2 (two) times a day with meals. 180 tablet 05/06/19 25 Active freestyle (FreeStyle Lancets) 28 gauge lancetsIndications :Type 2 diabetes mellitus with diabetic polyneuropathy, with long-term current use of insulin ([facility] V24, CMS/[facility] V28) 1 Stick into the skin 4 times daily. E11.29 400 each 05/06/19 25 Active blood sugar diagnostic (FreeStyle Lite Strips) test stripIndications:T ype 2 diabetes mellitus with diabetic polyneuropathy, with long-term current use of insulin ([facility] V24, [facility] V28) Use 4 times a day E11.9 400 each 05/06/19 25 Active pantoprazole (PROTONIX) 40 mg EC tablet TAKE 1 TABLET BY MOUTH IN THE MORNING BEFORE BREAKFAST 90 tablet 1 07/05/19 25 Active lidocaine (LIDODERM) 5 % patchIndications:D iabetic autonomic neuropathy associated with type 2 diabetes mellitus ([facility] V24, [facility] V28) Apply 1 patch topically 1 (one) time each day. Remove & discard patch within 12 hours or as directed by MD. 30 patch 3 07/07/19 25 Active vibegron (Gemtesa) 75 mg tablet tablet Take 1 tablet (75 mg total) by mouth 1 (one) time each day for 360 doses. Take 75 mg by mouth daily. 90 each 3 07/15/19 25 026 Active BD Ultra-Fine Short Pen Needle 31 gauge x 5/16 needleIndications: Type 2 diabetes mellitus with diabetic polyneuropathy, with long-term current use of insulin ([facility] V24, [facility] V28) Use qhs with basaglar 100 each 5 08/12/19 25 Active alcohol swabs (Alcohol Wipes) pads, medicatedIndicatio ns:Type 2 diabetes mellitus with diabetic polyneuropathy, with long-term current use of insulin ([facility] V24, [facility] V28) Use 4 times daily with insulin 100 each 3 08/12/19 25 Active BD Insulin Syringe Ultra-Fine 0.5 mL 31 gauge x 5/16 syringeIndications :Type 2 diabetes mellitus with diabetic polyneuropathy, with long-term current use of insulin ([facility], [facility] V28) Use tid with insulin lispro 100 each 3 08/12/19 25 Active insulin glargine,hum.rec.a nlog (Basaglar KwikPen U-100 Insulin) 100 unit/mL (3 mL) injection pen Use 48 units at bedtime 45 mL 2 08/12/19 25 Active insulin lispro 100 unit/mL injection Use Three times a day before meals: 100-149: 5 units, 150-199: 8 units units 200-249: 11 units, 250-299: 14 units 300-349: 16 units, 350-399: 17 units, >400: call me 45 mL 2 08/12/19 25 Active Active Problems Problem Noted Date Diagnosed Date Diabetic neuropathy ([facility], [facility] V28) 0 12/25/2023 Diabetes ([facility], [facility] V28) 12/25/2023 DM type 2 (diabetes mellitus , type 2) ([facility], [facility] V28) 12/25/2023 Insomnia due to anxiety and fear 12/25/2023 Migraines 12/25/2023 Arthritis 12/25/2023 Severe obesity ([facility], [facility] V28) 2023 Sinus headache 12/25/2023 Non compliance w medication regimen 06/02/2023 Myalgia 11/14/2021 Fatty liver 08/27/2020 Ventral hernia without obstruction or gangrene 0 08/27/2020 Dysuria 06/21/2020 Plantar fasciitis 04/24/2020 Simple chronic bronchitis ([facility], [facility] V28) 04/24/2020 Nabothian cyst 02/21/2020 Pelvic pain 02/21/2020 [...] Encounters Date Type Department Care Team Description 09/26/2024 12:30 PM EDT Treatment [address] [phone] Lorenzo Sanchez, SAMI Chronic left shoulder pain (Primary Dx) 09/22/2024 1:00 PM EDT Treatment [address] [phone] Mandeep Scott PTA Chronic left shoulder pain (Primary Dx) 09/19/2024 12:30 PM EDT Treatment [address] [phone] Lorenzo Sanchez PTA Chronic left shoulder pain (Primary Dx) 09/19/2024 Telephone Internal Medicine [address] [phone] Gabby Caballero MA 09/08/2024 3:30 PM EDT Treatment [address] [phone] Mandeep Scott VARNISH COOKER Chronic left shoulder pain (Primary Dx) 08/23/2024 12:30 PM EDT Evaluation [address] [phone] Joslyn Tyler, PT Chronic left shoulder pain (Primary Dx) 08/23/2024 Plan of Care Documentation [address] [phone] 08/16/2024 11:00 AM EDT Office Visit Internal Medicine [address] [phone] Elda Barrera MD Pain in both feet (Primary Dx) 08/11/2024 1:20 PM EDT Telemedicine [address] [phone] Nazia Enriquez PA Type 2 diabetes mellitus with diabetic polyneuropathy, with long-term current use of insulin (CMS/HCC V24, CMS/HCC V28) (Primary Dx); Mixed hyperlipidemia 07/21/2024 8:15 AM EDT Office Visit Internal Medicine [address] [phone] Elda Barrera MD Chronic left shoulder pain (Primary Dx); Type 2 diabetes mellitus with diabetic polyneuropathy, with long-term current use of insulin (CMS/HCC V24, CMS/HCC V28); Severe obesity (CMS/HCC V24, CMS/HCC V28); Moderate persistent asthma without complication 07/14/2024 3:00 PM EDT Office Visit Urogynecology - [address] [phone] Cyn Rosario NP Urinary frequency (Primary Dx); Urge incontinence; Bladder pain 07/14/[address] [phone] Nazia Enriquez PA Med Refill 07/05/2024 Telephone Internal Medicine [address] [phone] Elda Barrear MD [place]: Medication 06/27/2024 1:30 PM EDT Procedure visit Urogynecology [address] [phone] Kalani Obrien MD Microscopic hematuria (Primary Dx); Acute vaginitis; Urge incontinence; Urinary urgency; Urinary frequency; Nocturia; Women's annual routine gynecological examination from Last 3 Months Surgical History Surgery Date Site/Laterality Comments TUBAL LIGATION 2002 PROCEDURE: HISTORICAL TUBAL LIGATION OTHER SURGICAL HISTORY PROCEDURE: ANESTHESIA FOR SECTION; COMMENT: x 3 COLONOSCOPY 04/12/2019 PROCEDURE: HISTORICAL COLONOSCOPY; COMMENT: Dr. Vazquez -grade 2 internal hemorrhoids, otherwise normal. Repeat 10 years. CHOLECYSTECTOMY 1989 PROCEDURE: HISTORICAL CHOLECYSTECTOMY; COMMENT[place] ESOPHAGOGASTRODUODENOSCOPY 02/1998 PROCEDURE: [place] ESOPHAGOGASTRODUODENOSCOPY TRANSORAL DIAGNOSTIC; COMMENT: [place] -reportedly revealed evidence of a small hiatal [...] type 2 (diabetes mellitus , type 2) ([facility] V24, [facility] V28) DX:DM type 2 (diabetes germaine itus, type 2) ([facility]) Diabetic neuropathy ([facility] V24, [facility] V28) DX:Diabetic neuropathy ([facility]) Morbid obesity with BMI of 4 0.0-44.9, adult ([facility] V24, [facility] V28) DX:Morbid obesity wit h BMI of 40.0-44.9, adult ([facility]) Social History Tobacco Use Types Packs/Day Years Used Date Smoking Tobacco: Never Smokeless Tobacco: Never Tobacco Cessation:Counseling Given: Not Answered Alcohol Use Standard Drinks/Week Comments No 0 (1 standard drink = 0.6 oz pur e alcohol) Comments No Sex and Gender Information Value Date Recorded Sex Assigned at Not on file Legal Sex Female 10:51 AM EST Gender Identity Not on file Sexual Orientation Not on file Obstetrics History Last Filed Vital Signs Vital Sign Reading Time Taken Comments Blood Pressure 110/68 08/16/2024 10:59 AM EDT Pulse 85 08/16/2024 10:59 AM EDT Temperature 36.4 C (97.5 F) 08/16/2024 10:59 AM EDT Respiratory Rate 14 07/14/2024 2:33 PM EDT Oxygen Saturation 99% 08/16/2024 10:59 AM EDT Inhaled Oxygen Concentration - - Weight 92.1 kg (203 lb) 08/16/2024 10:59 AM EDT Height 152.4 cm (5') 05/06/2024 4:42 PM EST Body Mass Index 39.65 05/06/2024 4:42 PM EST Plan of Treatment Upcoming Encounters Date Type Department Care Team (Late st Contact Info) Description 09/29/2024 1:30 PM EDT Treatment [facility] [address] [phone] Joslyn Tyler, PT 09/30/2024 9:30 AM EDT Office Visit Internal Medicine [facility] [address] [phone] Elda Barrera MD [address] [phone] 10/03/2024 1:30 PM EDT Treatment [facility] [address] [phone] Joslyn Tyler, PT 10/27/2024 10:30 AM EDT Consult Orthopedic Surgery [facility] [address] [phone] Tom Ugalde DPMegan [address] [phone] 12/15/2024 11:00 AM EDT Office Visit Gastroenterology [facility] 175 [facility] [address] [phone] Karthikeyan Mcdonnell DO [address] [phone] 02/27/2025 4:20 PM EST Office Visit Endocrinology [address] [phone] Nazia Enriquez PA [address] [place] [address] Health Maintenance Due Date Last Done Comments [...] Influencers of Health Screening 03/15/2022 COVID-19 Vaccine ( - 2023-2 5 season) 2023 Depression Screening 04/15/2024 04/15/2023 Diabetes: Annual Urine Albumin-Creatinine Ratio (uACR) 07/09/2024 07/10/2023 Diabetes: Blood Sugar Contro l Test (HGBA1C) 08/30/2024 03/02/2024, 07/08/2023 Influenza Vaccine (Season Ended) 2024 Diabetes: Annual GFR (Glomerular Filtration Rate) 04/28/2025 [...] age to complete this topic Meningococcal B Vaccine Aged Out No l onger eligible based on patient's age to complete [...] 06/27/2024 1:3 8 PM EDT Acute vaginitis COMPREHENSIVE METABOLIC PANEL Routine 04/28/2024 11:22 AM EST Mixed hyperlipidemia LDL CHOLESTEROL, DIRECT Routine 04/28/2024 11:22 AM EST Mixed hyperlipidemia HEMOGLOBIN A1C Routine 03/02/2024 9:03 AM EST Enteritis Elevated alkaline phosphatase level Metabolic dysfunction-associate d steatotic liver disease (MASLD) Severe obesity ([facility] V24, [facility] V28) Diabetes mellitus due to underlying condition with diabetic amyotrophy, with long-term current use of insulin ([facility] V24, [facility] V28) HM COLONOSCOPY Routine 09/25/2023 HM URINE ALBUMIN CREATININE RATIO Routine 07/10/2023 HM DEPRESSION SCREENING Routine 04/15/2023 FRANCIS SCREENING DIGITAL Routine 01/28/2018 12:05 PM EDT Encounter for screening mammogram for malignant neoplasm of breast from Last 3 Months or Most Recently Relevant to Health Maintenance Results * Trichomonas vaginalis antigen (06/27/2024 1:38 PM EDT) Trichomonas vaginalis Negative Negative 06/27/2024 6:49 PM EDT [facility] Swab Vaginal structure / Unknown Non-blood Collection / Unknown 06/27/2024 1:38 PM EDT 06/27/2024 1:38 PM EDT Kalani Obrien MD LAB MICROBIOLOGY - GENERAL ORDER CORONA Final Result [facility] [address] [place] [address], * Wet prep, genital (06/27/2024 1:38 PM EDT) Clue Cells, Wet Prep Negative Negative 06/27/2024 6:47 PM EDT [facility] Yeast, Wet Prep Negative Negative 06/27/2024 6:47 PM EDT [facility] Trichomonas, Wet Prep Indeterminate Negative 06/27/2024 6:47 PM EDT [facility] Comment:Refer to Trichomonas antigen. Swab Vaginal structure / Unknown Non-blood Collection / Unknown 06/27/2024 1:38 PM EDT 06/27/2024 1:38 PM EDT Kalani Obrien MD LAB MICROBIOLOGY - GENERAL ORDER [place] Final Result [facility] [address] [place] [address], [place] [phone] * LDL cholesterol, direct (04/28/2024 11:22 AM EST) LDL Direct 81 <=100 mg/dL LAB CHEMISTRY METHOD 04/28/2024 3:17 PM EST [facility] Blood Venous blood specimen / Unknown Venipuncture / Unknown 04/28/2024 11:22 AM EST 04/28/2024 11:22 AM EST Margarette KOVACS LAB BLOOD ORDERABLES Fin al Result [facility] [address] [place] [address], [place] [phone] * (ABNORMAL) Comprehensive metabolic panel (04/28/2024 11:22 AM EST) Sodium 137 133 - 145 mmol/L LAB CHEMISTRY METHOD 04/28/2024 3:06 PM [facility] Potassium 3.9 3.5 - 5.5 mmol/L LAB CHEMISTRY METHOD 04/28/2024 3:06 PM [facility] Chloride 104 96 - 110 mmol/L LAB CHEMISTRY METHOD 04/28/2024 3:06 PM [facility] CO2 26 21 - 32 mmol/L LAB CHEMISTRY METHOD 04/28/2024 3:06 PM [facility] Anion Gap 7 3 - 11 LAB CHEMISTRY METHOD 04/28/2024 3:06 PM [facility] Glucose 193(H) 70 - 100 mg/dL LAB CHEMISTRY METHOD 04/28/2024 3:06 PM [facility] BUN 12 5 - 25 mg/dL LAB CHEMISTRY METHOD 04/28/2024 3:06 PM [facility] Creatinine 0.52 0.50 - 1.10 mg/dL LAB CHEMISTRY METHOD 04/28/2024 3:06 PM [facility] eGFR 110 >=60 mL/min/1. 73m2 LAB CHEMISTRY METHOD 04/28/2024 3:06 PM [facility] Comment:Calculation based on the Chronic Kidney Disease Epidemiology Collaboration (CKD-EPI) equation refit without adjustment for race. BUN/Creatinine Ratio 23.1 LAB CHEMISTRY METHOD 04/28/2024 3:06 PM [facility] Calcium 9.2 8.5 - 10.5 mg/dL LAB CHEMISTRY METHOD 04/28/2024 3:06 PM [facility] AST (SGOT) 28 10 - 42 unit/L LAB CHEMISTRY METHOD 04/28/2024 3:06 PM [facility] ALT (SGPT) 32 10 - 60 unit/L LAB CHEMISTRY METHOD 04/28/2024 3:06 PM [facility] Alkaline Phosphatase 135(H) 42 - 121 unit/L LAB CHEMISTRY METHOD 04/28/2024 3:06 PM [facility] Total Protein 7.8 6.0 - 8.0 g/dL LAB CHEMISTRY METHOD 04/28/2024 3:06 PM [facility] Albumin 3.1(L) 3.2 - 5.0 g/dL LAB CHEMISTRY METHOD 04/28/2024 3:06 PM [facility] Total Bilirubin 1.0 0.0 - 1.4 mg/dL LAB CHEMISTRY METHOD 04/28/2024 3:06 PM [facility] Blood Venous blood specimen / Unknown Venipuncture / Unknown 04/28/2024 11:22 AM EST 04/28/2024 11:22 AM EST Margarette KOVACS LAB BLOOD ORDERABLES Fin al Result [facility] [address] [place] [address], * (ABNORMAL) Hemoglobin A1c (03/02/2024 9:03 AM EST) Hemoglobin A1C 10.2(H) <6.5 % LAB CHEMISTRY METHOD 03/02/2024 1:54 PM [facility] Mean Bld Glu Estim. 246 mg/dL LAB CHEMISTRY METHOD 03/02/2024 1:54 PM EST [facility] Blood Venous blood specimen / Unknown Venipuncture / Unknown 03/02/2024 9:03 AM EST 03/02/2024 9:04 AM EST Karthikeyan Mcdonnell DO LAB BLOOD ORDERABLES Final Resul t [facility] [address] [place] [address], [place] [phone] * Colonoscopy (09/25/2023) Colonoscopy No Interpretation , Abstracted Anatomical Region Laterality Modality Other Historical Provider HEALTH MAINTENANCE Final Result * Urine Albumin Creatinine Ratio (07/10/2023) Pathologist [facility] Urine Albumin Creatinine Ratio Abstracted Historical Provider HEALTH MAINTENANCE Final Result * Depression Screening (04/15/2023) Depression Screening Abstracted Historical Provider MD HEALTH MAINTENANCE Final Result * FRANCIS SCREENING DIGITAL (01/28/2018 12:05 PM EDT) Anatomical Region Laterality Modality Mammography 01/28/2018 10:3 8 AM EDT Narrative 01/28/2018 12:05 PM EDT [facility] Diagnostic Imaging Department [address] [place] [address] Patient: RITA CARLIN./Age/Sex: 1970 - 47 - F Unit#: [id number] Location/Status: SPDIMAM/REG CLI Mnemonic/Ordering Site: DIGSC/SPMAM Ordering Physician: ELDA BARRERA MD [facility] Screening Digital - 01/28/18 - EXAM: [facility] Screening Digital EXAM DATE AND TIME: 01/28/2018 11:35 AM HISTORY: Screening. COMPARISON: 09/10/15, 08/01/13, 11/01/11 TECHNIQUE: CC and MLO views of both breasts were obtained using full field digital mammography. Bilateral digital breast tomosynthesis was performed in the MLO projection. Computer aided detection with the Personal[employer].2-H was employed. TISSUE DENSITY: b. There are scattered areas of fibroglandular density. FINDINGS: No suspicious masses, grouped microcalcifications, or areas of architectural distortion are seen. A few benign microcalcifications are again seen in the right breast. The skin and vascularity are unremarkable. IMPRESSION: Stable mammographic appearance of the breasts. No evidence of malignancy is seen. A negative mammogram in the presence of a clinically suspicious palpable abnormality does not preclude the possibility of malignancy or alter the indications for biopsy. BI-RADS: Category 2: Benign RECOMMENDATION(S): 1: Routine screening mammogram BILATERAL in 1 year. [address]03, 42653 3342F, 7025F Dictating Physician: YAQUELIN LOMELI MD Electronically Signed by: YAQUELIN LOMELI MD Dic Date/Time: 01/28/181204 Sign date/Time: 01/28/181204 Procedure Note Yaquelin Lomeli MD - 03/25/2022 [facility] Diagnostic Imaging Department [address] [place] [address] Patient: RITA CARLIN/Age/Sex: 1970 - 47 - F Unit#: [id number] Location/Status: SPDIMAM/REG CLI Mnemonic/Ordering Site: [facility] Ordering Physician: ELDA BARRERA MD [facility] Screening Digital - 01/28/18 - EXAM: [facility] Screening Digital EXAM DATE AND TIME: 01/28/2018 11:35 AM HISTORY: Screening. COMPARISON: 09/10/15, 08/01/13, 11/01/11 TECHNIQUE: CC and MLO views of both breasts were obtained using fullfield digital mammography. Bilateral digital breast tomosynthesis was performedin the MLO projection. Computer aided detection with the [employer] 7.2-omelett.esas employed. TISSUE DENSITY: b. There are scattered [...] Routine screening mammogram BILATERAL in 1 year. [id number], [id number] 3342F, 7025F Dictating Physician: YAQUELIN LOMELI MD Electronically Signed by: YAQUELIN LOMELI MD Dic Date/Time: 01/28/18 120 Sign date/Time: 01/28/181204 Elda Barrera MD IMG BI PROCEDURES Final Result from Last 3 Months or Most Recently Relevant to Health Maintenance Insurance MEDICARE [place]ICA[place] - [place] Care Teams Manufacturing Engineer Machining Relationship Specialty Start Date End Date Elda Barrera MD 175 [facility] [address] [place] [address] PCP - General Internal Medicine 03/27/14
== END 2024-09-27 14:38 | disposition home or self-care (01) ==
LOC: HO.HPS 14:18
PROVIDERS: PCP Internal Medicine; Visit Provider Internal Medicine Pulmonary Disease
DX: B37.0 Candidal stomatitis (principal); G47.33 Obstructive sleep apnea (adult) (pediatric); Z99.89 Dependence on other enabling machines and devices; R06.00 Dyspnea, unspecified; K21.9 Gastro-esophageal reflux disease without esophagitis
CPT/HCPCS: 99214; G2211

== ENCOUNTER → 2024-09-27 14:18 | Outpatient (BNVA) | payer MEDICARE, MEDICAID, SELFPAY | PROVIDERS: PCP Internal Medicine; Visit Provider Internal Medicine Pulmonary Disease | DX: B37.0 Candidal stomatitis (principal); G47.33 Obstructive sleep apnea (adult) (pediatric); R06.00 Dyspnea, unspecified; K21.9 Gastro-esophageal reflux disease without esophagitis; Z99.89 Dependence on other enabling machines and devices | CPT/HCPCS: 99212 ==

== ENCOUNTER 2025-01-31 13:55 | Outpatient (AMB) | payer MEDICARE, MEDICAID, SELFPAY ==
[2025-01-31 13:57] VITALS: BP 128/77; PULSE 92; O2SAT 98; BMI 39.4
--- NOTE | 2025-01-31 13:57 | MHC.OFFVIS ---
Vital Signs 01/31/25 13:57 Height 5 ft Weight 202 lb BMI 39.4 BP 128/77 Blood Pressure Location Rt brachial Position Sitting Pulse 92 Pulse Source Pulse Oximeter Pulse Oximetry (%) 98 Oxygen Delivery Method Room Air Intake Visit Reasons: Asthma Remote Control Assembler Required: Yes Remote Control Assembler Name: Seema Aden Franks Allergies clindamycin Allergy (Severe, Verified 01/31/25 14:03) Gastrointestinal Upset penicillin V Allergy (Severe, Verified 01/31/25 14:03) Dizziness/Closed Trachea Sulfa (Sulfonamide Antibiotics) Allergy (Severe, Verified 01/31/25 14:03) Dizziness/Closed Trachea HPI HPI Asthma: Details: 54-year-old lady, lifetime nonsmoker, with underlying super morbid obesity followed for CONSTANTINO, dyspnea on exertion, and chronic bronchitis. ?She continues to use Breo, Spiriva, Brovana, and albuterol MDI with suboptimal control of her symptoms.? She has completed her 2D echocardiogram and was normal.? She continues to complain of dyspnea with exertion and fatigue.? She has been using her CPAP with reasonable control of her CONSTANTINO symptoms. She continues on Carafate for her GERD. Patient continues to complain of cough, now with worsening sputum. [facility] Medical History (Updated 06/28/24 @ 11:46 by Chacho Saul MD) Hypertension Hypertriglyceridemia Poorly controlled type 2 diabetes mellitus Dyspnea on exertion Chronic bronchitis CONSTANTINO on CPAP GERD (gastroesophageal reflux disease) History of pancreatitis Morbid obesity Social History Patient Tobacco Use Status: Never used Tobacco Review of Systems Const Denies daytime sleepiness, Denies excessive sweating, Denies fatigue, Denies fever(s), Denies lethargy, Denies malaise, Denies night sweats, Denies snoring and Denies weight loss Eyes Denies blurry vision and Denies itchy eyes ENT Denies nasal congestion, Denies post nasal drip, Denies sinus pain, Denies sinus pressure and Denies other ( Thrush) Card Denies chest pain, Denies pedal edema, Denies dyspnea, Reports dyspnea on exertion, Denies orthopnea and Denies paroxysmal nocturnal dyspnea Resp Reports cough, Denies hemoptysis, Reports excessive phlegm production, Denies dyspnea, Reports dyspnea on exertion, Denies snoring and Denies wheezing GI Denies abdominal pain and Denies heartburn Musc Denies myalgias, Denies arthralgias and Denies joint swelling Skin/Breast Denies rash Neuro Denies memory loss and Denies seizure-like activity Psych Denies abnormal sleep pattern, Denies anxiety and Denies memory loss Endo Denies excessive sweating, Denies fatigue and Denies heat intolerance Hal/Lymph Denies easy bruising Aller/Immun Denies itchy eyes, Denies seasonal rhinorrhea and Denies wheezing Physical Exam Vital Signs: Last Vital Signs Pulse 92 01/31/25 13:57 BP 128/77 01/31/25 13:57 Pulse Ox 98 01/31/25 13:57 Oxygen Delivery Method Room Air 01/31/25 13:57 BMI result Body Mass Index 39.4 Const General: no acute distress and alert Nutritional Appearance: obese Orientation/consciousness: Other orientation findings ( oriented) HEENT Head: Yes atraumatic Eyes General: appearance normal, both eyes and all related structures Sclerae: sclerae normal EOM: EOMs intact bilaterally Neck Neck: Yes supple Lymphatic: no lymphadenopathy noted Resp Effort & Inspection: normal respiratory effort and no use of accessory muscles Auscultation: clear to auscultation bilaterally Cardio Rate: regular rate Rhythm: regular rhythm Heart sounds: no gallops, no murmurs and no rubs Skin General skin exam: other ( warm) Extrem General: No clubbing, No cyanosis and No edema Assessment & Plan Assessment & Plan (1) Cough: Code(s): R05.9 - Cough, unspecified Category: Medical Plan: Now with worsening sputum. Will obtain sputum culture. (2) CONSTANTINO on CPAP: Code(s): G47.33 - Obstructive sleep apnea (adult) (pediatric); Z99.89 - Dependence on other enabling machines and devices Category: Medical Plan: Controlled current CPAP therapy. Continue CPAP therapy. (3) Dyspnea on exertion: Code(s): R06.00 - Dyspnea, unspecified Category: Medical Plan: Pulmonary component controlled on current regimen of Brovana, Breo, duo nebs, theophylline, and Spiriva. Continue current regimen. (4) GERD (gastroesophageal reflux disease): Code(s): K21.9 - Gastro-esophageal reflux disease without esophagitis Category: Medical Plan: Controlled on sucralfate and omeprazole. Continue current regimen. Orders: Orders Sputum Cult + Gram stain Today R05.9 - Cough, unspecified Fungus Cult Other Today R05.9 - Cough, unspecified Coding Level of Care Code Est Pt Level 4 (82454) Complex EM visit Add On G2211 Diagnoses Cough R05.9 CONSTANTINO on CPAP G47.33; Z99.89 Dyspnea on exertion R06.00 GERD (gastroesophageal reflux disease) K21.9
--- OUTSIDE RECORDS SUMMARY | 2025-01-31 18:14 | XMS_ITS ---
Author Name [facility] Organization Unknown Care Team Organization Name Specialty Phone Email Start Date End Da te [facility]ly [facility] 11/23/2024 [facility] Nazia Enriquez Primary [facility] 03/18/2023 11/23/19 [facility] Emily Barrera Primary Care 02/11/2022 11/23/19
--- OUTSIDE RECORDS SUMMARY | 2025-01-31 18:14 | XMS_ITS | Clinical Summary ---
Author Organization [address] [facility] Address [address] [place] [address] Phone Care Team Providers Care Mva Still Operator Name Role Phone Elda Barrera MD Primary Care Provider [phone] Allergies Active Allergy Reactions Criticality Noted Date Comments Clindamycin 03/02/2024 Glipizide 06/22/2019 Levofloxacin 09/09/2021 Metronidazole Itching 10/15/2020 Penicillins Rash,Hives High 05/29/2011 Sulfa (Sulfonamide Antibiotics) 07/07/2017 SOB Sulfadiazine 12/25/2023 difficulty breathing Medications isopropyl alcohol-benzocain e 70-6 % pads, medicated 1 each by Not Applicable route. 024 Active miconazole (Lotrimin AF) 2 % powder Apply powder to feet daily for 4 weeks 023 Active naproxen (NAPROSYN) 500 mg tablet 024 Active ondansetron ODT (ZOFRAN-ODT) 4 mg disintegrating tablet Take 1 tablet (4 mg total) by mouth. 024 Active predniSONE (DELTASONE) 20 mg tablet 023 Active traZODone (DESYREL) 100 mg tablet Take 1 Tablet by mouth at bedtime. 024 Active escitalopram (LEXAPRO) 10 mg tablet Take 1 tablet (10 mg total) by mouth 1 (one) time each day. Active clobetasoL (TEMOVATE) 0.05 % cream To affected area 2 times daily for no more than 1 week. Active clotrimazole (LOTRIMIN) 1 % cream Apply to skin daily for 6 weeks in between toes for fungus Active cyclobenzaprine (FLEXERIL) 5 mg tablet TAKE 1 TABLET BY MOUTH AT BEDTIME NEEDED FOR MUSCLE SPASMS. Active diclofenac (VOLTAREN) 1 % topical gel Apply 4 g topically 2 times daily. Active fluticasone propionate (FLONASE) 50 mcg/actuation nasal spray 1 [place] by Nasal route daily. Active flash glucose scanning reader (FreeStyle [place] 2 [place]) misc 1 Device by Does not apply route continuous. Active flash glucose sensor (FREESTYLE [place] 2 SENSOR MISC) 1 Each by Does not apply route every 14 days. Active INCONTINENCE PANTS, REUSABLE MISC 1 Each by Does not apply route 4 times daily as needed for Other. Active blood-glucose meter kit USE DIRECTED CHECK SUGAR TWICE DAILY Active ofloxacin (OCUFLOX) 0.3 % ophthalmic solution INSTILL 2 DROPS INTO BOTH EYES 4 TIMES DAILY FOR 5 DAYS Active prednisoLONE acetate (PRED FORTE) 1 % ophthalmic suspension INSTILL 1 DROP IN BOTH EYES EVERY 4 HOURS FOR USE X 4 DAYS Active Symbicort 160-4.5 mcg/actuation inhalerIndication s:Moderate persistent asthma without complication Inhale 1 puff by mouth 2 (two) times a day. Inhale 2 Puffs into the lungs 2 times daily. 3 each 1 Active tiotropium (SPIRIVA) 18 mcg per inhalation capsuleIndication s:Moderate persistent asthma without complication Place 1 capsule (18 mcg total) into inhaler and inhale 1 (one) time each day. Inhale 1 Capsule into the lungs daily. 90 each 1 Active ipratropium-albut Jose (DUONEB) 0.5-2.5 mg/3 mL nebulizer solutionIndicatio ns:Moderate persistent asthma without complication Take 3 mL by nebulization every 4 (four) hours if needed for wheezing. Inhale 3 mL into the lungs every 4 hours as needed for Other (wheezing). USE 3 ML VIA NEBULIZER EVERY 4 TO 6 HOURS NEEDED FOR WHEEZING 25 mL 1 Active albuterol sulfate (ProAir RespiClick) 90 mcg/actuation aerosol powdr breath activatedIndicati ons:Moderate persistent asthma without complication Inhale 2 puffs by mouth every 4 (four) hours if needed (sob). Inhale 1-2 Puffs into the lungs 4 times daily as needed for Other. 3 each Active meclizine (ANTIVERT) 12.5 mg tablet Take 1 tablet (12.5 mg total) by mouth 3 (three) times a day if needed for dizziness. Take 1 Tablet by mouth 2 times daily as needed (dizziness). 30 tablet Active lidocaine (LIDODERM) 5 % patchIndications: Diabetic autonomic neuropathy associated with type 2 diabetes mellitus ([facility] V24, [facility] V28) Apply 1 patch topically 1 (one) time each day. Remove & discard patch within 12 hours or as directed by MD. 30 patch Active BD Insulin Syringe Ultra-Fine 0.5 mL 31 gauge x 516 syringeIndication s:Type 2 diabetes mellitus with diabetic polyneuropathy, with long-term current use of insulin ([facility] V24, [facility] V28) Use tid with insulin lispro 100 each Active BD Ultra-Fine Short Pen Needle 31 gauge x 516 needleIndications :Type 2 diabetes mellitus with diabetic polyneuropathy, with long-term current use of insulin ([facility] V24, [facility] V28) Use qhs with basaglar 100 each Active vibegron (Gemtesa) 75 mg tablet tabletIndications :Type 2 diabetes mellitus with diabetic polyneuropathy, with long-term current use of insulin ([facility] V24, [facility] V28) Take 1 tablet (75 mg total) by mouth 1 (one) time each day for 360 doses. Take 75 mg by mouth daily. 90 each 2025 Active freestyle (FreeStyle Lancets) 28 gauge lancetsIndication s:Type 2 diabetes mellitus with diabetic polyneuropathy, with long-term current use of insulin ([facility] [place], [facility] V28) 1 Stick into the skin 4 times daily. E11.29 400 each Active metFORMIN (GLUCOPHAGE) 1,000 mg tabletIndications :Type 2 diabetes mellitus with diabetic polyneuropathy, with long-term current use of insulin ([facility] V24, [facility] V28) Take 1 tablet (1,000 mg total) by mouth 2 (two) times a day with meals. 180 tablet Active cholecalciferol (VITAMIN D-3) 25 mcg (1,000 unit) tabletIndications :Vitamin D deficiency Take 1 tablet (1,000 Units total) by mouth 1 (one) time each day. Take 1 Tablet by mouth daily. 90 each Active hydrocortisone (ANUSOL-HC) 2.5 % rectal creamIndications: Hemorrhoids, unspecified hemorrhoid type Insert into the rectum 2 (two) times a day. Apply 1 Dose topically 2 times daily. 30 g Active alcohol swabs (Alcohol Wipes) pads, medicatedIndicati ons:Type 2 diabetes mellitus with diabetic polyneuropathy, with long-term current use of insulin ([facility] V24, [facility] V28) Use 4 times daily with insulin 100 each Active Admelog U-100 insulin lispro 100 unit/mL injectionIndicati ons:Type 2 diabetes mellitus with diabetic polyneuropathy, with long-term current use of insulin ([facility] V24, [facility] V28) Inject under skin once per day 10 mL Active gabapentin (NEURONTIN) 100 mg capsuleIndication s:Type 2 diabetes mellitus with diabetic polyneuropathy, with long-term current use of insulin ([facility] V24, [facility] V28) TAKE 1 CAPSULE BY MOUTH TWICE A DAY MORNING AND AFTERNOON 180 capsule Active blood sugar diagnostic (FreeStyle Lite Strips) test stripIndications: Type 2 diabetes mellitus with diabetic polyneuropathy, with long-term current use of insulin ([facility] [place], [facility] V28) USE TO TEST BLOOD SUGAR 4 TIMES DAILY 400 strip 1 025 Active atorvastatin (LIPITOR) 10 mg tabletIndications :Mixed hyperlipidemia Take 1 tablet (10 mg total) by mouth at bedtime. 90 tablet 1 025 Active gemfibroziL (LOPID) 600 mg tabletIndications :Mixed hyperlipidemia Take 1 tablet (600 mg total) by mouth 2 (two) times a day. 180 tablet 1 025 Active furosemide (LASIX) 40 mg tabletIndications :Lower leg edema Take 1 tablet (40 mg total) by mouth 1 (one) time each day. 90 tablet 1 025 Active insulin glargine,hum.rec. anlog (Basaglar KwikPen U-100 Insulin) 100 unit/mL (3 mL) injection penIndications:Ty pe 2 diabetes mellitus with diabetic polyneuropathy, with long-term current use of insulin ([facility] [place], [facility] V28) Use 48 units at bedtime 45 mL 2 025 Active benzonatate (TESSALON) 200 mg capsule Take 1 capsule (200 mg total) by mouth 3 (three) times a day if needed for cough. Do not crush or chew. 21 capsule 025 Active pantoprazole (PROTONIX) 40 mg EC tablet TAKE 1 TABLET BY MOUTH EVERY MORNING BEFORE BREAKFAST 90 tablet 1 025 Active pantoprazole (PROTONIX) 40 mg EC tablet TAKE 1 TABLET BY MOUTH IN THE MORNING BEFORE BREAKFAST 90 tablet 1 025 2024 Discontinued lidocaine (LIDODERM) 5 % patch Apply 1 patch topically 1 (one) time each day. Remove & discard patch within 12 hours or as directed by . 30 each 2 025 2024 Active Problems Problem Noted Date Diagnosed Date Diabetic neuropathy ([facility] [place], [facility] V28) 0 12/25/2023 Diabetes ([facility] [place], [facility] V28) 12/25/2023 DM type 2 (diabetes mellitus , type 2) ([facility] [place], [facility] V28) 12/25/2023 Insomnia due to anxiety and fear 12/25/2023 Migraines 12/25/2023 Arthritis 12/25/2023 Severe obesity ([facility] V24, [facility] V28) 2023 Sinus headache 12/25/2023 Non compliance w medication regimen 06/02/2023 Myalgia 11/14/2021 Fatty liver 08/27/2020 Ventral hernia without obstruction or gangrene 0 08/27/2020 Dysuria 06/21/2020 Plantar fasciitis 04/24/2020 Simple chronic bronchitis ([facility] V24, [facility] V28) 04/24/2020 Nabothian cyst 02/21/2020 Pelvic pain [...] Encounters Date Type Department Care Team Description 12/26/2024 4:00 PM EDT Office Visit Internal Medicine [address] [phone] Elda Barrera MD Acute bronchitis, unspecified organism (Primary Dx); Mixed hyperlipidemia; Lower leg edema; Type 2 diabetes mellitus with diabetic polyneuropathy, with long-term current use of insulin ([facility] [place], [facility] V28) 12/26/2024 Telephone Internal Medicine [address] [phone] Elda Barrera MD 12/15/2024 11:00 AM EDT Office Visit Gastroenterology [address] [phone] Sathya, Karthikeyan, DO Metabolic dysfunction-associate d steatotic liver disease (MASLD) (Primary Dx); Celiac disease; Elevated LFTs from Last 3 Months Surgical History Surgery Date Site/Laterality Comments TUBAL LIGATION 2002 PROCEDURE: HISTORICAL TUBAL LIGATION OTHER SURGICAL HISTORY PROCEDURE: ANESTHESIA FOR SECTION; COMMENT: x 3 COLONOSCOPY 04/12/2019 PROCEDURE: HISTORICAL COLONOSCOPY; COMMENT: Dr. Vazquez -grade 2 internal hemorrhoids, otherwise normal. Repeat 10 years. CHOLECYSTECTOMY 1989 PROCEDURE: HISTORICAL CHOLECYSTECTOMY; COMMENT: in [place] ESOPHAGOGASTRODUODENOSCOPY 02/1998 PROCEDURE: [place] ESOPHAGOGASTRODUODENOSCOPY TRANSORAL DIAGNOSTIC; COMMENT: [place] -reportedly revealed evidence of a small hiatal [...] type 2 (diabetes mellitus , type 2) ([facility] V24, [facility] V28) DX:DM type 2 (diabetes germaine itus, type 2) ([facility]) Diabetic neuropathy ([facility] V24, [facility] V28) DX:Diabetic neuropathy (HCC) Morbid obesity with BMI of 4 0.0-44.9, adult ([facility] V24, [facility] V28) DX:Morbid obesity wit h BMI of 40.0-44.9, adult ([facility]) Social History Tobacco Use Types Packs/Day Years [...] Sign Reading Time Taken Comments Blood Pressure 124/80 12/26/2024 3:58 PM EDT Pulse 72 12/26/2024 3:58 PM EDT Temperature 36.6 C (97.9 F) 12/26/2024 3:58 PM EDT Respiratory Rate 18 12/26/2024 3:58 PM EDT Oxygen Saturation 97% 12/26/2024 3:58 PM EDT Inhaled Oxygen Concentration - - Weight 90.7 kg (200 lb) 12/26/2024 3:58 PM EDT Height 152.4 cm (5') 12/26/2024 3:58 PM EDT Body Mass Index 39.06 12/26/2024 3:58 PM EDT Plan of Treatment Upcoming Encounters Date Type Department Care Team (Late st Contact Info) Description 02/27/2025 4:20 PM EST Office Visit Endocrinology [facility] [address] [place] [phone] Nazia Enriquez PA [address] [place] [address] 05/01/2025 3:30 PM EST Office Visit Internal Medicine - [address] [place] [phone] Elda Barrrea MD [address] [place] [phone] Health Maintenance Due Date Last Done Comments Diabetes: Annual Foot Exam 1978 Diabetes: Annual Retina Eye Exam 1978 DTaP,Tdap,and Td Vaccines (1 - Tdap) 12/04/1987 Hepatitis A Vaccines (1 of 2 - Risk 2-dose series) 12/04/1987 Hepatitis B Vaccines (1 of 3 - 19+ 3-dose series) 12/04/1987 Pneumococcal Vaccine: 50+ Years (1 of 2 - PCV) 12/04/1987 Cervical Cancer Screening: P ap Smear 1989 RSV Immunization Adult Patients (1 - Risk 50-74 years 1-dose series) 2018 Zoster Vaccines (1 of 2) 2018 Breast Cancer Screening 01/29/2020 01/28/2018 HIV Screening 03/15/2022 Hepatitis C Screening 03/15/2022 Medicare Annual Wellness Visit 03/15/2022 Social Influencers of Health Screening 03/15/2022 Depression Screening 04/06/2024 04/15/2023 Diabetes: Annual Urine Albumin-Creatinine Ratio (uACR) 07/09/2024 07/10/2023 Diabetes: Blood Sugar Contro l Test (HGBA1C) 08/30/2024 03/02/2024, 07/08/2023 COVID-19 Vaccine (2023-2 5 season) 2024 Influenza Vaccine (#1) 2024 Diabetes: Annual GFR (Glomerular Filtration Rate) 04/28/2025 04/28/2024, 03/02/2024, 07/08/2023 Colorectal Cancer Screening: [...] Procedure Name Priority Date/Time Associated Diagnosis Comments COMPREHENSIVE METABOLIC PANEL Routine 04/28/2024 11:22 AM EST Mixed hyperlipidemia LDL CHOLESTEROL, DIRECT Routine 04/28/2024 11:22 AM EST Mixed hyperlipidemia HEMOGLOBIN A1C Routine 03/02/2024 9:03 AM EST Enteritis Elevated alkaline phosphatase level Metabolic dysfunction-associate d steatotic liver disease (MASLD) Severe obesity (CMS/HCC V24, CMS/HCC V28) Diabetes mellitus due to underlying condition with diabetic amyotrophy, with long-term current use of insulin (CMS/HCC V24, CMS/HCC V28) HM COLONOSCOPY Routine 09/25/2023 HM URINE ALBUMIN CREATININE RATIO Routine 07/10/2023 HM DEPRESSION SCREENING Routine 04/15/2023 [facility] SCREENING DIGITAL Routine 01/28/2018 12:05 PM EDT Encounter for screening mammogram for malignant neoplasm of breast from Last 3 Months or Most Recently Relevant to Health Maintenance Results * LDL cholesterol, direct (04/28/2024 11:22 AM EST) LDL Direct 81 <=100 mg/dL LAB CHEMISTRY METHOD 04/28/2024 3:17 PM [facility] Blood Venous blood specimen / Unknown Venipuncture / Unknown 04/28/2024 11:22 AM EST 04/28/2024 11:22 AM EST Margarette KOVACS LAB BLOOD ORDERABLES Fin al Result [facility] [address] [place] [address], * (ABNORMAL) Comprehensive metabolic panel (04/28/2024 11:22 AM EST) Sodium 137 133 - 145 mmol/L LAB CHEMISTRY METHOD 04/28/2024 3:06 PM [facility] Potassium 3.9 3.5 - 5.5 mmol/L LAB CHEMISTRY METHOD 04/28/2024 3:06 PM [facility] Chloride 104 96 - 110 mmol/L LAB CHEMISTRY METHOD 04/28/2024 3:06 PM [facility] CO2 26 21 - 32 mmol/L LAB CHEMISTRY METHOD 04/28/2024 3:06 PM [facility] Anion Gap 7 3 - 11 LAB CHEMISTRY METHOD 04/28/2024 3:06 PM [facility] Glucose 193(H) 70 - 100 mg/dL LAB CHEMISTRY METHOD 04/28/2024 3:06 PM [facility] BUN 12 5 - 25 mg/dL LAB CHEMISTRY METHOD 04/28/2024 3:06 PM [facility] Creatinine 0.52 0.50 - 1.10 mg/dL LAB CHEMISTRY METHOD 04/28/2024 3:06 PM [facility] eGFR 110 >=60 mL/min/1. 73m2 LAB CHEMISTRY METHOD 04/28/2024 3:06 PM [facility] Comment:Calculation based on the Chronic Kidney Disease Epidemiology Collaboration (CKD-EPI) equation refit without adjustment for race. BUN/Creatinine Ratio 23.1 LAB CHEMISTRY METHOD 04/28/2024 3:06 PM [facility] Calcium 9.2 8.5 - 10.5 mg/dL LAB CHEMISTRY METHOD 04/28/2024 3:06 PM [facility] AST (SGOT) 28 10 - 42 unit/L LAB CHEMISTRY METHOD 04/28/2024 3:06 PM [facility] ALT (SGPT) 32 10 - 60 unit/L LAB CHEMISTRY METHOD 04/28/2024 3:06 PM [facility] Alkaline Phosphatase 135(H) 42 - 121 unit/L LAB CHEMISTRY METHOD 04/28/2024 3:06 PM [facility] Total Protein 7.8 6.0 - 8.0 g/dL LAB CHEMISTRY METHOD 04/28/2024 3:06 PM [facility] Albumin 3.1(L) 3.2 - 5.0 g/dL LAB CHEMISTRY METHOD 04/28/2024 3:06 PM [facility] Total Bilirubin 1.0 0.0 - 1.4 mg/dL LAB CHEMISTRY METHOD 04/28/2024 3:[address] [facility] Blood Venous blood specimen / Unknown Venipuncture / Unknown 04/28/2024 11:22 AM EST 04/28/2024 11:22 AM EST Margarette KOVACS LAB BLOOD ORDERABLES Fin al Result Performing Organization Address [facility]/ZIP Co de Phone Number [facility] [address] [place] [address], [place] [phone] * (ABNORMAL) Hemoglobin A1c (03/02/2024 9:03 AM EST) [facility] Hemoglobin A1C 10.2(H) <6.5 % LAB CHEMISTRY METHOD 03/02/2024 1:[address] [facility] Mean Bld Glu Estim. 246 mg/dL LAB CHEMISTRY METHOD 03/02/2024 1:[address] [facility] Blood Venous blood specimen / Unknown Venipuncture / Unknown 03/02/2024 9:03 AM EST 03/02/2024 9:04 AM EST Karthikeyan Mcdonnell DO LAB BLOOD ORDERABLES Final Resul t Performing Organization Address [facility]/ZIP Co de Phone Number [facility] [address] [place] [address], [place] [phone] * Colonoscopy (09/25/2023) [facility] Colon[facility] No Interpretation , Abstracted Anatomical Region Laterality Modality Other Historical Provider HEALTH MAINTENANCE Final Result * Urine Albumin Creatinine Ratio (07/10/2023) [facility] Urine Albumin Creatinine Ratio Abstracted Historical Provider HEALTH MAINTENANCE Final Result * Depression Screening (04/15/2023) [facility] Depression Screening Abstracted us Historical Provider HEALTH MAINTENANCE Final Result * [facility] SCREENING DIGITAL (01/28/2018 12:05 PM EDT) Anatomical Region Laterality Modality Mammography 01/28/2018 10:3 8 AM EDT Narrative 01/28/2018 12:05 PM EDT [facility] Diagnostic Imaging Department [address] [place] [id number] Patient: EVERITA /Age/Sex: 1970 - 47 - F Unit#: [id number] Location/Status: [facility] CLI Mnem[facility] Physician: ELDA BARRERA MD [facility] Screening Digital - 01/28/18 - EXAM: [facility] Screening Digital EXAM DATE AND TIME: 01/28/2018 11:35 AM HISTORY: Screening. COMPARISON: 09/10/15, 08/01/13, 11/01/11 TECHNIQUE: CC and MLO views of both breasts were obtained using full field digital mammography. Bilateral digital breast tomosynthesis was performed in the MLO projection. Computer aided detection with the Cronote 7.2-H was employed. TISSUE DENSITY: b. There [...] Routine screening mammogram BILATERAL in 1 year. 19473, 22338 3342F, 7025F Dictating Physician: YAQUELIN LOMELI MD Electronically Signed by: YAQUELIN LOMELI MD Dic Date/Time: 01/28/181204 Sign date/Time: 01/28/181204 Procedure Note Yaquelin Lomeli MD - 03/25/2022 [facility] Diagnostic Imaging Department [address] [place] [address] Patient: RITA PRADO D.O.B./Age/Sex: 1970 - 47 - F Unit#: [id number] Location/Status: [facility] Mnemonic/Ordering Site: [facility] Ordering Physician: ELDA BARRERA MD [facility] Screening Digital - 01/28/18 - EXAM: [facility] Screening Digital EXAM DATE AND TIME: 01/28/2018 11:35 AM HISTORY: Screening. COMPARISON: 09/10/15, 08/01/13, 11/01/11 TECHNIQUE: CC and MLO views of both breasts were obtained using fullfield digital mammography. Bilateral digital breast tomosynthesis was performedin the MLO projection. Computer aided detection with the Cronote 7.2-Hwas employed. TISSUE DENSITY: b. There are scattered [...] Routine screening mammogram BILATERAL in 1 year. 39375, [id number] 3342F, 7025F Dictating Physician: YAQUELIN LOMELI MD Electronically Signed by: YAQUELIN LOMELI MD Dic Date/Time: 01/28/18 120 Sign date/Time: 01/28/181204 [facility] IMG BI PROCEDURES Final Result from Last 3 Months or Most Recently Relevant to Health Maintenance Insurance MEDICARE [place]ICA[place] - [place] Care Teams Mva Still Operator Relationship Specialty Start Date End Date Elda Barrera MD [address] [phone] PCP - General Internal Medicine 03/27/14
--- OUTSIDE RECORDS SUMMARY | 2025-01-31 18:14 | XMS_ITS | Encounter Summary ---
Author Organization [facility] Address [address] [place] [address] Care Team Providers Care Gunite Nozzle Operator Name Role Phone Emily Barrera MD Primary Care Provider [phone] Encounter Details Date Type Department Care Team (Late Contact Info) Description 12/26/2024 [place] [facility] [address] [facility] [address] [place] [phone] Emily Barrera MD [address] [place] [phone] Social History Tobacco Use Types Packs/Day Years [...] on file documented as of this encounter Plan of Treatment Upcoming Encounters Date Type Department Care Team (Late Contact Info) Description 02/27/2025 4:20 PM EST Office Visit Endocrinology - [address] [phone] Nazia Enriquez PA [address] [place] [address] 05/01/2025 3:30 PM EST Office Visit Internal Medicine - [place] [address] [facility] [address] [place] [phone] Emily Barrera MD [address] [place] [phone] documented as of this encounter Visit Diagnoses Not on filedocumented in this encounter Care Teams Gunite Nozzle Operator Relationship Specialty Start Date End Date Emily Barrera MD [address] [phone] PCP - General Internal Medicine 03/27/14 documented as of this encounter
== END 2025-01-31 14:30 | disposition home or self-care (01) ==
LOC: HO.HPS 13:56
PROVIDERS: PCP Internal Medicine; Visit Provider Internal Medicine Pulmonary Disease
DX: R05.9 Cough, unspecified (principal); G47.33 Obstructive sleep apnea (adult) (pediatric); Z99.89 Dependence on other enabling machines and devices; R06.00 Dyspnea, unspecified; K21.9 Gastro-esophageal reflux disease without esophagitis
CPT/HCPCS: 99214; G2211

== ENCOUNTER → 2025-01-31 13:55 | Outpatient (BNVA) | payer MEDICARE, MEDICAID, SELFPAY | PROVIDERS: PCP Internal Medicine; Visit Provider Internal Medicine Pulmonary Disease | DX: R05.9 Cough, unspecified (principal); G47.33 Obstructive sleep apnea (adult) (pediatric); Z99.89 Dependence on other enabling machines and devices; K21.9 Gastro-esophageal reflux disease without esophagitis; E66.01 Morbid (severe) obesity due to excess calories; J42 Unspecified chronic bronchitis; Z79.899 Other long term (current) drug therapy | CPT/HCPCS: 99212 ==